=== PATIENT | male | born 1950 | race Caucasian/White ===

== ENCOUNTER 2022-06-23 13:11 | Emergency (ER) | payer MEDICARE ==
[~2022-06-23] VITALS: Ht 175.3 cm; Wt 95.2 kg
[~2022-06-23 13:11] MED LIST: ALBUTEROL S5 MG/1 ML INH; FUROSEMIDE20 MG PO; PERCOCET 5-3251 EACH PO; QVAR7.3 G1 INH
--- OUTSIDE RECORDS SUMMARY | 2022-06-23 13:18 | XMS ---
PreManage Notification: PARKER ELLIS Security Dietary Services Director Events No recent Security Events currently on file CRITERIA MET - [facility] - 2 Visits in 30 Days CARE PROVIDERS ABRAHAM MARINELLI Digital Project Manager: Foot \T\ Ankle Surgery Current PHONE: [phone] ANAHY BURGESS Internal Medicine Current PHONE: [phone] OLI CONDON Nurse Practitioner: Family Current PHONE: Unknown JODIE COURTNEY Internal Medicine Current PHONE: [phone] KARYN URBANO Nurse Practitioner: Family Current PHONE: [phone] NIVIA CHAPIN Nurse Practitioner Current CATA PHONE: [phone] ABDULAZIZ DOMINGUEZ Family Medicine Current PHONE: [phone] ISRA FREEDMAN Nurse Practitioner: Family Current PHONE: Unknown SHYAM MADRID Family Medicine Current PHONE: Unknown Lewis has no Care Guidelines for this patient. [facility]ison VISIT COUNT (12 MO.) 2 Hans Martinez [facility] 1 GENESIS Hernandez TOTAL 3 NOTE: Visits indicate total known visits. ED/UCC VISIT TRACKING (12 MO.) 06/23/2022 13:12 GENESIS Kate [place] TYPE: Emergency COMPLAINT: - CONSTIPATION [facility] DIAGNOSES: - Thrombocytopenia, unspecified - Influenza due to other identified influenza virus with other respiratory manifestations - Weakness - Alcohol abuse, uncomplicated - Chronic obstructive pulmonary disease with (acute) exacerbation - Alcoholic hepatitis without ascites - Weakness - Unspecified atrial fibrillation - Repeated falls 04/06/2022 16:56 [facility] DIAGNOSES: - Non-ST elevation (NSTEMI) myocardial infarction - Shortness of Breath - Influenza due to other identified influenza virus with other respiratory manifestations - Unspecified atrial fibrillation - Acute and chronic respiratory failure with hypoxia - Chronic obstructive pulmonary disease with (acute) exacerbation INPATIENT VISIT TRACKING (12 MO.) 06/14/2022 07[facility]03 [facility] TYPE: Medical Surgical DIAGNOSES: - Thrombocytopenia, unspecified - Alcohol abuse, uncomplicated - Repeated falls - Weakness - Alcoholic hepatitis without ascites - Chronic obstructive pulmonary disease with (acute) exacerbation - Unspecified atrial fibrillation - Chronic obstructive pulmonary disease, unspecified - Chronic respiratory failure with hypoxia - Influenza due to other identified influenza virus with other respiratory manifestations 04/06/2022 16:56 [facility] [place] ELAN TYPE: Medical Surgical DIAGNOSES: - Chronic obstructive pulmonary disease with (acute) exacerbation - Unspecified atrial fibrillation - Localized edema - Disorientation, unspecified - Influenza due to other identified influenza virus with other respiratory manifestations - Mild intermittent asthma, uncomplicated - Non-ST elevation (NSTEMI) myocardial infarction - Chronic obstructive pulmonary disease with (acute) exacerbation - Acute and chronic respiratory failure with hypoxia - Non-ST elevation (NSTEMI) myocardial infarction - Unspecified atrial fibrillation - Poisoning by benzodiazepines, accidental (unintentional), initial encounter - Pneumonia, unspecified organism [email or web address]
[2022-06-23] MEDS ORDERED: FOLIC ACID1 MG PO (13:24)
[2022-06-23] MEDS ORDERED: INCRUSE ELLI62.5 MCG IH (13:24)
[2022-06-23] MEDS ORDERED: BENZONATATE200 MG PO (13:25)
[2022-06-23] MEDS ORDERED: ATORVASTATIN CA40 MG PO (13:25)
[2022-06-23] MEDS ORDERED: CITALOPRAM HBR10 MG PO (13:25)
[2022-06-23] MEDS ORDERED: DILTIAZEM 24HR120 MG PO (13:26)
[2022-06-23] MEDS ORDERED: PREDNISONE20 MG PO (13:27)
[2022-06-23] MEDS ORDERED: PROMETHAZINE HC25 M1 PO (13:27)
[2022-06-23] MEDS ORDERED: VITAMIN B-1100 MG (13:28)
== END 2022-06-23 16:27 | disposition home or self-care (01) ==
LOC: ED 13:11
DX: K59.00 Constipation, unspecified (principal); J43.9 Emphysema, unspecified; I48.91 Unspecified atrial fibrillation; E78.5 Hyperlipidemia, unspecified; I25.2 Old myocardial infarction; Z87.891 Personal history of nicotine dependence; Z88.0 Allergy status to penicillin; Z79.899 Other long term (current) drug therapy; Z79.52 Long term (current) use of systemic steroids
CPT/HCPCS: 74176; 99284-25

== ENCOUNTER 2022-07-27 09:42 | Emergency (ER) | payer MEDICARE ==
[~2022-07-27] VITALS: Ht 175.3 cm; Wt 90.7 kg
[~2022-07-27 09:42] MED LIST changes: +ATORVASTATIN CA40 MG PO; +BENZONATATE200 MG PO; +CITALOPRAM HBR10 MG PO; +DILTIAZEM 24HR120 MG PO; +FOLIC ACID1 MG PO; +INCRUSE ELLI62.5 MCG IH; +PREDNISONE20 MG PO; +PROMETHAZINE HC25 M1 PO; +VITAMIN B-1100 MG
[2022-07-27] MEDS ORDERED: PREDNISONE20 MG PO (12:38)
== END 2022-07-27 14:11 | disposition home or self-care (01) ==
LOC: ED 09:42
DX: J44.1 Chronic obstructive pulmonary disease with (acute) exacerbation (principal); I48.91 Unspecified atrial fibrillation; E78.5 Hyperlipidemia, unspecified; I25.2 Old myocardial infarction; Z87.891 Personal history of nicotine dependence; Z88.0 Allergy status to penicillin; Z79.899 Other long term (current) drug therapy
CPT/HCPCS: 36415; 71045; 80053; 83880; 85025; 94640; 96374; 99285-25; J2930

== ENCOUNTER 2022-08-03 22:40 | Inpatient (IN) | payer MEDICARE ==
[~2022-08-03] VITALS: Ht 175.3 cm; Wt 88.1 kg
[~2022-08-03 22:40] MED LIST changes: -ALBUTEROL S5 MG/1 ML INH; +IPRAT-ALBUT 0.5-3 ML INH
--- OUTSIDE RECORDS SUMMARY | 2022-08-03 22:48 | XMS ---
PreManage Notification: APRKER ELLIS Security Clinical Information Systems Director Events No recent Security Events currently on file CRITERIA MET - [facility] - 2 Visits in 30 Days CARE PROVIDERS ABRAHAM MARINELLI Jacquard Plate Maker: Foot \T\ Ankle Surgery Current PHONE: [phone] ANAHY BURGESS Internal Medicine Current PHONE: [phone] OLI CONDON Nurse Practitioner: Family Current PHONE: Unknown JODIE COURTNEY Internal Medicine Current PHONE: [phone] KARYN URBANO Nurse Practitioner: Family Current PHONE: [phone] NIVIA CHAPIN Nurse Practitioner Current CATA PHONE: [phone] ABDULAZIZ DOMINGUEZ Family Medicine Current PHONE: [phone] ISRA FREEDMAN Nurse Practitioner: Family Current PHONE: Unknown SHYAM MADRID Family Medicine Current PHONE: Unknown Lewis has no Care Guidelines for this patient. Jamison VISIT COUNT (12 MO.) 2 Hans Martinez M[facility] 3 GENESIS Hernandez TOTAL 5 NOTE: Visits indicate total known visits. ED/UCC VISIT TRACKING (12 MO.) 08/03/2022 22:40 GENESIS Kate [place] TYPE: Emergency COMPLAINT: - WEAKNESS 07/27/2022 09:42 GENESIS Kate [place] TYPE: Emergency COMPLAINT: - SHORTNESS OF BREATH DIAGNOSES: - Allergy status to penicillin - Hyperlipidemia, unspecified - Unspecified atrial fibrillation - Other chcf (current) drug therapy - Chronic obstructive pulmonary disease with (acute) exacerbation - Old myocardial infarction - Shortness of breath - Personal history of nicotine dependence 06/23/2022 13:12 GENESIS Hewitt TYPE: Emergency COMPLAINT: - CONSTIPATION DIAGNOSES: - Old myocardial infarction - Other terminal gauger (current) drug therapy - FPC (current) use of systemic steroids - Constipation, unspecified - Unspecified atrial fibrillation - Hyperlipidemia, unspecified - Emphysema, unspecified - Allergy status to penicillin - Personal history of nicotine dependence 06/14/2022 07:03 [facility] Dorothy ANSARI TYPE: Emergency DIAGNOSES: - Alcohol abuse, uncomplicated - Chronic obstructive pulmonary disease with (acute) exacerbation - Alcoholic hepatitis without ascites - Weakness - Unspecified atrial fibrillation - Repeated falls - Thrombocytopenia, unspecified - Influenza due to other identified influenza virus with other respiratory manifestations - Weakness 04/06/2022 16:56 [facility] DIAGNOSES: - Unspecified atrial fibrillation - Acute and chronic respiratory failure with hypoxia - Chronic obstructive pulmonary disease with (acute) exacerbation - Non-ST elevation (NSTEMI) myocardial infarction - Shortness of Breath - Influenza due to other identified influenza virus with other respiratory manifestations INPATIENT VISIT TRACKING (12 MO.) 06/14/2022 07:03 [facility]: Medical Surgical DIAGNOSES: - Weakness - Alcoholic hepatitis without ascites - Chronic obstructive pulmonary disease with (acute) exacerbation - Unspecified atrial fibrillation - Chronic obstructive pulmonary disease, unspecified - Chronic respiratory failure with hypoxia - Influenza due to other identified influenza virus with other respiratory manifestations - Thrombocytopenia, unspecified - Alcohol abuse, uncomplicated - Repeated falls 04/06/2022 16:56 [facility] [place] TYPE: Medical Surgical DIAGNOSES: - Mild intermittent asthma, uncomplicated - Non-ST elevation (NSTEMI) myocardial infarction - Chronic obstructive pulmonary disease with (acute) exacerbation - Acute and chronic respiratory failure with hypoxia - Non-ST elevation (NSTEMI) myocardial infarction - Unspecified atrial fibrillation - Poisoning by benzodiazepines, accidental (unintentional), initial encounter - Pneumonia, unspecified organism - Chronic obstructive pulmonary disease with (acute) exacerbation - Unspecified atrial fibrillation - Localized edema - Disorientation, unspecified - Influenza due to other identified influenza virus with other respiratory manifestations [email or web address]
--- NOTE | 2022-08-04 05:40 | NUR ---
pt ARRIVED TO MEDSURG FLOOR FROM ED STRETCHER AT THIS TIME, ANXIOUS REGARDING HOSPITALIZATION. THERAPEUTIC COMMUNICATION PROVIDED AND pt REASSURED. TELE AND CPOX IN PLACE, pt CHRONICALLY ON 3LNC, CURRENTLY ON 4LNC D/T EXERTION R/T COMING TO MS FLOOR. FRESH WATER PROVIDED, pt EDUCATED TO TAKE SMALL SIPS, pt VERBALIZED UNDERSTANDING. AFIB PER MONITOR, HR 108. pt ORIENTED TO ROOM, CALL LIGHT IN REACH. ASSISTED WITH URINAL, VOIDED 225 MLS.
[2022-08-04 05:42] VITALS: BP 116/77
--- NOTE | 2022-08-04 07:15 | NUR ---
PT titrated from 4lnc to 3lnc, spo2 low to mid 90's. no needs or concerns verbalized, call light in reach.
--- NOTE | 2022-08-04 07:30 | EKG ---
[facility] [address] [place], [place] [address] Signed Atrial fibrillation Low voltage QRS Abnormal ECG No previous ECGs available Confirmed by DEA KENYON MD ([id number]) on 08/04/2022 7:29:44 AM Electronically Signed By: DEA KENYON MD 08/04/22 0730 PATIENT NAME: PARKER ELLIS Electrocardiogram DATE OF : 46 PHYSICIAN: DEA KENYON MD REPORT #: [id number] REPORT IS CONFIDENTIAL AND NOT TO BE RELEASED WITHOUT AUTHORIZATION
--- NOTE | 2022-08-04 08:15 | NUR ---
PT. INTAKE HISTORY COMPLETED. PT. C/O SOB AND IS TACHYPNEIC. O2 SAT. IS 94%. PT REPORTS HX OF ANXIETY AND DISCUSSED HOME MED FOR IT. RT IN THE ROOM FOR BREATHING TX. DISCUSSED SAFETY AND POC. CALL LIGHT IN REACH.
--- NOTE | 2022-08-04 09:10 | NUR ---
INTAKE ASSESSMENT COMPLETED. PT. BROUGHT WATER AND DENIES FURTHER NEEDS. CALL LIGHT IN REACH.
[2022-08-04 09:31] VITALS: BP 124/81
--- NOTE | 2022-08-04 11:31 | NUR ---
PT. REPORTS DRINKING A FIFTH OF TEQUILLA EVERY TWO DAYS. HE STATES LAST DRINK WAS LAST NIGHT. CIWA SCORE OF 14. ELIEJOVANNY ARRIVED AND AT BEDSIDE. UPDATED.
--- NOTE | 2022-08-04 11:39 | NUR ---
PTS GRANDDAUGTHER RUPERTO UPDATED ON PTS CONDITION AND STATUS. RUPERTO STATES PT "STAYS HOME AND DRINKS ALL DAY." RUPERTO VERBALIZES UNDERSTANDING AND STATES HER QUESTIONS HAVE BEEN ANSWERED. PTS PRIMARY RN UPDATED. MD AWARE OF ETOH USE.
--- NOTE | 2022-08-04 11:59 | NUR ---
PT. ASSISTED BY 2 STAFF TO BSC AND FWW. UNSTEADY AND TREMULOUS. PT. IS ANXIOUS AND HR UP TO 150. ASSISTED BACK TO BED. CUT FILER IN THE ROOM. WILL CONTINUE TO MONITOR.
[2022-08-04 13:07] VITALS: BP 125/74
--- NOTE | 2022-08-04 13:33 | NUR ---
ROUNDING ON PT. HE STATES THAT VALIUM HELPED WITH ANXIETY. DISCUSSED S/SX OF WITHDRAWAL. WILL CONTINUE TO MONITOR.
[2022-08-04] MEDS ORDERED: TAMSULOSIN HCL0.4 MG PO (13:52)
[2022-08-04] MEDS ORDERED: VENTOLIN HFA18 GM INH (13:55)
[2022-08-04] MEDS ORDERED: PROMETHAZINE HC25 M1 PO (13:55)
[2022-08-04] MEDS ORDERED: VITAMIN D325 MCG PO (15:06)
--- NOTE | 2022-08-04 15:07 | NUR ---
MED REC COMPLETE
--- NOTE | 2022-08-04 15:51 | NUR ---
ROUNDING ON PT. HE DENIES NEEDS AT THIS TIME.HR IMPROVED. PT. STATES ANXIETY IS BETTER AFTER MED. RT IN THE ROOM FOR BREATHING TX.
[2022-08-04 17:56] VITALS: BP 134/83
--- NOTE | 2022-08-04 19:10 | NUR ---
shift rpeort received from dayshift tara carpio at bedside, pt resting quietly in bed with eyes closed. rr even and unlabored, no distress noted. tele#[address], afib with hr in the 90's. spo2 low 90's, on chronically 3lnc. call light in reach.
--- NOTE | 2022-08-04 20:02 | NUR ---
PATIENT SITTING UP IN BED WATCHING TV. PATIENT REQUEST FRESH ICE WATER. NC WAS OFF TO THE SIDE OF PATIENTS FACE, FIXED BY THIS NURSE. PATIENTS ROOM CLEANED UP. VITALS DONE. PATIENT DENIES WARM BLANKET, OR ANY OTHER CARES AT THIS TIME. CALL LIGHT WITHIN REACH.
[2022-08-04 20:06] VITALS: BP 108/77
--- NOTE | 2022-08-04 20:29 | NUR ---
ASSESSMENT COMPLETE, SCHEDULED EVENING MEDS GIVEN-SEE EMAR. pt A/OX4, VSS. HEART RHYTHM IRREGULAR, RATE WNL. pt DENEIS PAIN OR NAUSEA. INCONTINENT OF SMEAR BM, RAAD CARE DONE AND NEW ATTENDS IN PLACE. SKIN VERY DRY AND FLAKEY, TRACE BLE EDEMA. IV SITE WNL, BLOOD RETURN NOTED. FLUSHES EASILY. NO ADDITIONAL NEEDS OR CONCERNS. CALL LIGHT IN REACH.
--- NOTE | 2022-08-05 00:01 | NUR ---
pt RESTING IN BED WITH EYES CLOSED, ON HIS CHRONIC 3LNC, SPO2 93%. RR EVEN AND UNLABORED, NO DISTRESS NOTED. CALL LIGHT IN REACH.
[2022-08-05 01:45] VITALS: BP 114/72
--- NOTE | 2022-08-05 01:49 | NUR ---
CALL LIGHT ANSWERED, ASSISTED pt WITH USE OF URINAL, VOIDED 225MLS. NO ACUTE CHANGES TO ASSESSMENT. pt DENEIS NAUSEA AND PAIN, NO RESP DISTRESS NOTED. VSS. CALL LIGHT IN REACH.
--- NOTE | 2022-08-05 03:26 | NUR ---
PT CALLED, REQUESTED URINAL; AFTER 3-4 MIN, PT SAID GUESS FALSE ALARM. PT ABLE TO REPOSITION UP IN BED, ONCE HOB LOWERED, ABLE TO BEND LEGS AND PUSH SELF UP TO HOB. CURRENTY SATS 93%; HR 92. CALL LIGHT WITHIN REACH. PT TO CALL IF NEED ARRISES. 3LNC CONTINUES.
[2022-08-05 04:41] VITALS: BP 123/88
--- NOTE | 2022-08-05 04:42 | NUR ---
VSS AND I&O'S COLLECTED, FRESH ICE WATER PROVIDED. pt REMAINS ON 3LNC, NO DISTRESS OR NEEDS VERBALIZED. NO S/SX OF WITHDRAWL NOTED. BED ALARM ON AND CALL LIGHT IN REACH.
--- NOTE | 2022-08-05 06:31 | NUR ---
lead reapplied to pt, no additional needs or concerns. call light in reach.
--- NOTE | 2022-08-05 09:30 | NUR ---
PATIENT AWAKE, WATCHING TELEVISION. APPEARS CALM, CIWA 1. ADMINISTERED MORNING MEDICAITONS, FULL BODY ASSESSMENT COMPLETED, NO ACUTE CHANGES. LUNG SOUNDS COURSE AND RHONCHI THROUGHOUT. PATIENT ON 3L NC 02 SAT 91%. ENCOURAGED TO GET UP TO RECLINER FOR MEALS.
[2022-08-05 09:41] VITALS: BP 111/67
--- NOTE | 2022-08-05 13:00 | NUR ---
ATTTEMPTED TO GET PATIENT UP TO RECLINER, PATIENT REFUSED. STATED " I FEEL SHORT OF BREATH" PATIENT AGREED TO TRY TO GET UP AGAIN LATER IN THE AFTERNOON. PATIENT BREATHING EVEN AND REGULAR, OXYGEN SATURATION 95% ON 3L NC. NO OTHER NEEDS AT THIS TIME. PATIENT SELF SHIFTING WEIGHT IN BED.
[2022-08-05 14:19] VITALS: BP 124/74
[2022-08-05 16:54] VITALS: BP 109/68
--- NOTE | 2022-08-05 17:00 | NUR ---
PATIENT CIWA 1, APPEARS CALM. PATIENT BREATHING EVEN AND REGULAR. PATIENT SAT AT EDGE OF BED FOR 30 MINUTES, BUT THEN WOULD NOT PROGRESS TO RECLINER AND REQUESTED TO REST BACK IN BED. LUNG SOUNDS COURSE WITH RHONCHI THROUGHOUT. VOIDING WELL, HAD 2 LARGE BMS TODAY. 2 PERSON ASSIST TO BSC.
--- NOTE | 2022-08-05 19:20 | NUR ---
REPORT RECEIVED FROM JULIUS COLIN. pt RESTING IN BED WITH EYES CLOSED. RR 16. SNORING. 3L OXYGEN BY NC IN PLACE. TOOTHPICKS DELIVERED BY DAUGHETER AND PLACED ON BEDSIDE TABLE. CALL LIGHT IN REACH.
[2022-08-05 20:56] VITALS: BP 100/85
--- NOTE | 2022-08-05 21:22 | NUR ---
pt AWAKE WATCHING TV. VSS. ASSISTED TO USE URINAL FOR VOID, CONCENTRATED. pt WITH TREMORS, CIWA SCORE 2. SCHEDULED MEDICATIONS ADMINISTERED. DISCUSSED PLAN OF CARE WITH PATIENT AND DESIRE FOR pt TO STOP DRINKING. pt STATES HE HAS TRIED IN THE PAST BUT IS NOW READY. HR IRREGULAR ON TELE 6, SPO2 WNL WITH 3L OXYGEN BY NC IN PLACE.
--- NOTE | 2022-08-05 23:17 | NUR ---
CHECKED ON pt. RESTING IN BED ON BACK, EYES CLOSED, RR 20. HR 81-84 ON TELE 6. NO DISTRESS NOTED. 3L OXYGEN BY NC IN PLACE.
--- NOTE | 2022-08-06 01:13 | NUR ---
pt AWAKE RESTING IN BED, SLOW TO RESPOND, STATES "I'M JUST WAKING UP". pt DENIES ANY NEEDS. WATCHTING TV. CALL LIGHT IN REACH.
--- NOTE | 2022-08-06 01:43 | NUR ---
CALL LIGHT ANSWERED. pt PROVIDED WITH ICE WATER. DENIES TOIELTING OR OTHER NEEDS. CALL LIGHT IN REACH.
--- NOTE | 2022-08-06 03:17 | NUR ---
pt RESTING IN BED WITH EYES CLOSED. HR 78-83 ON TELE 6, AFIB RHYTHM. SPO2 95% WITH 3L OXYGEN BY NC IN PLACE. CALL LIGHT WITHIN REACH.
[2022-08-06 04:07] VITALS: BP 104/62
--- NOTE | 2022-08-06 04:19 | NUR ---
CALL LIGHT ANSWERED. ASSISTED pt TO VOID IN URINAL. TELE BATTERY REPLACED. ASSESSMENT COMPLETE. pt REQUESTING TO REST. WATER REFRESHED WITH ICE. CALL LIGHT IN REACH.
--- NOTE | 2022-08-06 07:15 | NUR ---
REPORT FROM JULIUS MÉNDEZ.
--- NOTE | 2022-08-06 08:13 | NUR ---
MORNING ASSESSMENT IS COMPLETE. PATIENT IS RESTING IN BED, AWAITING BREAKFAST. PATIENT IS WEARING HIS CHRONIC 3L OF O2 AND 93% PATIENT DENIES PAIN OR NAUSEA. NO OTHER NEEDS NOTED AT THIS TIME.
--- NOTE | 2022-08-06 08:16 | NUR ---
records req from [facility]. fax # is [phone]
--- NOTE | 2022-08-06 09:26 | NUR ---
PATIENT RESTING IN BED, DENIES NEEDS AT THIS TIME.
[2022-08-06 09:54] VITALS: BP 106/74
--- NOTE | 2022-08-06 10:48 | NUR ---
PATIENT IS RESTING IN BED, DENIES NEEDS.
--- NOTE | 2022-08-06 11:23 | NUR ---
Certified Heart Failure Nurse Notes: Diagnosis: Acute CHF and COPD exacerbation Learning Officer:FLAVIA PCP:Dr Mchugh Date of echocardiogram - one not found on [facility] records Admit Wt.: 190 lb Admit Pro BNP: 270 Social support system: Lives with spouse. Weight monitoring: Scale present in home. Instructed how to weigh daily/ when to notify PCP Symptom management: Addressed monitoring and reporting changes in weight or symptoms. Diet: Usual meals include home cooked food. is the primary cook in the household. Medication routine: Denies missed medications or problems obtaining medications. He will accept a 7 day pill reminder box to use at home. Infrequently uses NSAIDs. Counseled on minimizing/avoiding use of NSAIDs. Mr Yañez is very concerned about the use of diuretics at home. States he can not get up and down to use bathroom. Discussed not taking within 6 hours of bedtime and possibilities of holding diuretics prior to appointments outside of his home.But ensuring that he does not skip a day altogether. Given the option to consider condom cath. Tobacco: former Advanced directive: Not discussed at this initial visit Recommendations prior to discharge: Document ambulation oxygen saturations prior to discharge Absence of orthostatic hypotension. Discharge weight less than admit weight. Discharge BNP less than admit (as per [facility] Heart Failure DC Bundle) Barriers to self-care include: Knowledge deficit of heart failure management and low sodium diet. Frequent urination with diuretic use. Per previous physician note patient has history of alcohol abuse. Follow-up plans: Will give the patient a 7 day pill associate merchandise planner box prior to his discharge.Patient agrees to receive a follow up call from this service. Patient and would be welcome for [facility] complimentary outpatient heart failure education. Teaching materials given today: [facility] Heart Failure bundle folder-[facility] My Action Plan Living Well with Heart Failure book, Daily weight and symptom monitoring log, Zones magnet, [facility] contact information.
--- NOTE | 2022-08-06 11:30 | NUR ---
INTO SEE PATIENT, PATIENT AWAKE LAYING IN BED. PATIENT STATES HE LIVE IN A ONE LEVEL HOME WITH HIS LUIS. PATIENT HAS A WALKER AT HOME. DISCUSSED THAT PATIENT HAS RECENTLY BEEN PLACED AT LOCAL [facility] FOR REHAB. PATIENT STATES THAT HE FEELS HE IS SAFE TO GO HOME WITH HIS WIFES ASSISTANCE. PATIENT STATES HE DOES DRIVE OCCASIONALLY, BUT HIS AND GRANDDAUGHTER ASSIST WITH HOUSEHOLD TASK AND SHOPPING. DISCUSSED PATIENTS ONGOING ETOH USE AND CASANDRA REFERRAL OFFERED, PATIENT DECLINED. PATIENT STATES THAT HE HAS BEEN THROUGH [facility] IN THE PAST. HE STATES "I FEEL LIKE I WANT TO DO IT ON MY OWN THIS TIME." PATIENT DENIES FINANCIAL NEEDS AT THIS TIME. NO FURTHER QUESTIONS OR CONCERN FROM THE PATIENT AT THIS TIME. WILL CONTINUE TO CHECK IN WITH PATIENT DURING HIS VISIT.
--- NOTE | 2022-08-06 12:20 | NUR ---
PATIENT GIVEN ORAL MEDS. PATIENT CONTINUES TO HAVE FINE TREMOR, NO AGITATION. DR. EWING IN TO SEE PATIENT.
[2022-08-06 13:53] VITALS: BP 102/70
--- NOTE | 2022-08-06 13:57 | NUR ---
PATIENT HAD A GOOD APPETITE FOR LUNCH, MOVED SELF UP IN BED WITH MINIMAL ASSISTANCE. NO OTHER NEEDS NOTED AT THIS TIME.
--- NOTE | 2022-08-06 15:09 | NUR ---
PATIENT GIVEN 5MG OF SCHEDULED VALIUM, DENIES OTHER NEEDS. PATIENT ENCOURAGED, SEVERAL TIMES, TO GET UP TO THE CHAIR BUT HAS REFUSED SO FAR.
--- NOTE | 2022-08-06 16:47 | NUR ---
PATIENT GIVEN PO NYSTATIN, IS RESTING IN BED. PATIENT IS CONCERNED ABOUT HAVING ENOUGH HELP WHEN HE GOES HOME.
[2022-08-06 18:24] VITALS: BP 101/64
--- NOTE | 2022-08-06 18:57 | NUR ---
PATIENT IS RESTING IN BED, NO NEEDS NOTED AT THIS TIME.
--- NOTE | 2022-08-06 19:42 | NUR ---
REPORT RECEIVED FROM JULIUS FLOR. pt RESTING IN BED AWAKE. DENIES ANY NEEDS. 3L OXYGEN BY NC IN PLACE. CALL LIGHT AND PERSONAL SUPPLIES IN REACH. pt ON TELE 6, SPO2 92%.
[2022-08-06 21:35] VITALS: BP 108/64
--- NOTE | 2022-08-06 21:50 | NUR ---
pt SLEEPING, AWAKENS TO VOICE. CIWA SCORE 2, TREMORS NOTED. ASSESSMENT COMPLETE. IV FLUSHED WNL, SL. VSS. pt ASSISTED TO VOID IN URINAL. WATER REFRESHED WITH ICE. LIGHTS OFF IN ROOM. NO ADDITIONAL REQUESTS.
--- NOTE | 2022-08-06 22:49 | NUR ---
NOTIFIED BY CCU pt'S SPO2 DROPS TO LOW 80S CONSISTENTLY. SPO2 80% WHEN RN ENTERS ROOM. NC IN PLACE, pt LYING ON BACK, HOB ELEVATED, BREATHING WITH MOUTH OPEN. TITRATED TO 4L OXYGEN BY NC, SPO2 87-88%. pt AWAKENS TO VOICE, SWITCHED TO OXYMASK, 4L OXYGEN, SPO2 INCREASES TO 92-94% ON TELE CPOX. pt CLOSING EYES RN EXITS ROOM.
--- NOTE | 2022-08-06 23:00 | NUR ---
TITRATED TO 3L OXYGEN BY OXYMASK, SPO2 97-98% AT THIS TIME. pt SNORING, EYES CLOSED. NO DISTRESS NOTED.
--- NOTE | 2022-08-07 01:15 | NUR ---
SPO2 DROPS TO 84% ON TELE 6, OXYMASK OFF pt'S FACE PARTIALLY. OXYMASK WITH 3L OXYGEN REPOSITIONED, SPO2 INCREASES TO >92%.
--- NOTE | 2022-08-07 01:49 | NUR ---
PATIENT ASSISTED IN USING THE URINAL. PATIENT URINATED 125ML DARK URINE. NO OTHER NEEDS AT THIS TIME.
--- NOTE | 2022-08-07 01:50 | NUR ---
CALL LIGHT ANSWERED. pt ASSISTED TO BSC FOR LARGE FORMED BOWEL MOVEMENT. pt ABLE TO TRANSFER SELF INDEPENDENTLY IN AND OUT OF BED. SBA FOR SUPPORT AND TO PROVIDE WALKER. pt ABLE TO PULL DOWN ATTENDS. RN ASSISTS WITH WIPING DUE TO CPOX SENSOR ON HAND. pt REQUIRES PROMPTING WITH CARES. REPOSITIONS SELF IN BED. ASSESSMENT COMPLETE. LUNG SOUNDS WITH WHEEZES THROUGHOUT ALL LOBES, SPO2 WNL WITH 3L OXYGEN BY NC IN PLACE. CALL LIGHT AND PERSONAL SUPPLIES WITHIN REACH.
--- NOTE | 2022-08-07 04:00 | NUR ---
pt RESTING IN BED WITH EYES CLOSED, TURNED ONTO LEFT SIDE. BREATHING UNLABORED, RR 18. 3L OXYGEN BY NC IN PLACE, SPO2 97% ON TELE CPOX.
[2022-08-07 05:09] VITALS: BP 122/90
--- NOTE | 2022-08-07 05:10 | NUR ---
CALL LIGHT ANSWERED. pt ASSISTED TO USE URINAL. STANDING WEIGHT. 1PA TO STAND. pt SOB WITH EXERTION. BACK IN BED, 3L OXYGEN BY NC IN PLACE. ICE WATER PROVIDED. CALL LIGHT IN REACH.
--- NOTE | 2022-08-07 07:33 | NUR ---
REPORT RECEIVED FROM JULIUS MÉNDEZ. PT IN BED AND APPEARS TO BE SLEEPING.
--- NOTE | 2022-08-07 09:07 | NUR ---
PT SITTING UP IN BED. REPORTS NAUSEA. CALLED AND ADMINISTERED ZOFRAN. ORDERED MEDS GIVEN. PT DENIES CONCERNS OTHER THAN HE WANTS MIKE. VS STABLE. IV FLUSHED WELL.
[2022-08-07 10:01] VITALS: BP 103/69
--- NOTE | 2022-08-07 11:00 | NUR ---
NURSE HELPED ME PUT PATIENT IN THE SHOWER. PUT HIM ON A SHOWER CHAIR. WASHED HIS HAIR AND HIS BODY. CLEAN GOWN AND SOCKS. PATIENT IS BACK IN BED.
--- NOTE | 2022-08-07 11:21 | NUR ---
ASSISTED PATIENT WITH ERYN SHERWOOD TO SHOWER. CHANGED BEDDING.
[2022-08-07 13:33] VITALS: BP 98/64
--- NOTE | 2022-08-07 14:28 | NUR ---
PT WAS NAPPING AGAIN, WOKE FOR MEDS. PT DENIES NEEDS OR CONCERNS ATT.
--- NOTE | 2022-08-07 14:39 | NUR ---
SPOKE TO PATIENT ABOUT THE DISCHARGE PLAN. PATIENT PLANS TO GO HOME TO HIS OWN HOME THAT HE SHARES WITH HIS . DENIES CASE MANAGEMENT NEEDS. ENCOURAGED PATIENT TO NOTIFY CM IF THE PLAN CHANGES.
--- NOTE | 2022-08-07 16:02 | NUR ---
PT GIVEN ICE WATER. CALL LIGHT IN PLACE. PT DENIES NEEDS ATT.
--- NOTE | 2022-08-07 17:34 | NUR ---
WOKE FOR DINNER AND SCHEDULED MED. PT DENIES NEEDS ATT.
[2022-08-07 18:13] VITALS: BP 99/60
--- NOTE | 2022-08-07 19:20 | NUR ---
REPORT RECEIVED FROM JULIUS HOPE. pt RESTING IN BED. 3L OXYGEN BY NC IN PLACE, SPO2 91% ON TELE 6 CPOX, HR 76-83 AFIB RHYTHM. CALL LIGHT IN REACH. pt DENIES NEEDS.
[2022-08-07 20:58] VITALS: BP 101/72
--- NOTE | 2022-08-07 21:09 | NUR ---
pt RESTING IN BED ASLEEP, SNORING. AWAKENS TO VOICE. VSS, 3L OXYGEN BY NC IN PLACE. ASSESSMENT COMPLETE. pt DENIES TOILETING OR ADDITIONAL NEEDS. IV SITE FLUSHED WNL, SL. CALL LIGHT IN REACH.
--- NOTE | 2022-08-07 22:41 | NUR ---
PT O2 SATS INTO THE 70'S. INTO ROOM, CANULA OUT OF NOSTRILS, PT WITH EYES CLOSED, SNORING, MOUTH WIDE OPEN. INCREASED O2 TO 4, SATS DID NOT IMPROVE HIGHER THAN THE LOW 80'S. PLACED ON OXIMASK 3 LITERS WITH THE NC, UP TO THE 90'S, DECREASED O2 TO A TOTAL OF 3 L BOTH NC, AND OXIMASK. SATS IN THE LOW 90'S VIA MONITOR. PT STIRRED, TOOK SOME DEEP BREATHS, THEN TO SNORING WHILE STAFF IN THE ROOM.
--- NOTE | 2022-08-07 23:09 | NUR ---
pt RESTING IN BED ON BACK, HOB ELEVATED. NC WITH 2L OXYGEN AND OXYMASK WITH 1L OXYGEN IN PLACE. SPO2 94% ON TELE CPOX. HR 85-87, AFIB.
--- NOTE | 2022-08-08 01:30 | NUR ---
CHECKED ON pt. RESTING IN BED ON LEFT SIDE. NO DISTRESS NOTED. SPO2 91%.
--- NOTE | 2022-08-08 02:17 | NUR ---
PATIENT CALLED TO USE THE URINAL AND ASKED FOR ASSISTANCE. PATIENT VOIDED 125 DARK URINE. DENIES OTHER NEEDS AT THIS TIME.
[2022-08-08 04:03] VITALS: BP 101/79
--- NOTE | 2022-08-08 04:11 | NUR ---
CALL LIGHT ANSWERED. pt ASSISTED TO VOID IN URINAL, CONCENTRATED 100 ML VOID. ASSESSMENT COMPLETE. VSS. pt REQUESTING TO STAND FOR DAILY WEIGHT LATER ON IN MORNING. LIGHTS OFF IN ROOM, CALL LIGHT IN REACH.
--- NOTE | 2022-08-08 07:38 | NUR ---
PT ASSESSMENT AND MEDICATION ADMINISTRATION COMPLETED.
[2022-08-08 09:59] VITALS: BP 99/67
[2022-08-08] MEDS ORDERED: DIAZEPAM2 MG PO (11:41)
[2022-08-08] MEDS ORDERED: VITAMIN B-1100 MG PO (11:42)
[2022-08-08] MEDS ORDERED: NYSTATIN100000 UN1 PO (11:43)
[2022-08-08] MEDS ORDERED: DIAZEPAM5 MG PO (12:02)
[2022-08-08 13:29] VITALS: BP 115/72
--- NOTE | 2022-08-08 13:54 | NUR ---
SPOKE TO PATIENT ABOUT HIS DISCHARGE PLAN. PATIENT WILL BE GOING HOME TODAY. PATIENT IS WAITING FOR TO PICK HIM UP. PATIENT IS ON CHRONIC 02 AND HAS OXYGEN AT HOME ALREADY.
--- NOTE | 2022-08-08 14:20 | NUR ---
PT READY FOR DISCHARGE. EDUCATION PACKET DISCUSSED AND GIVEN TO PT. IV REMOVED, VS COMPLETED. PT IS A/O, RESPIRATIONS EVEN AND REGULAR. PT INSTRUCTED TO CALL WHEN FAMILY ARRIVES TO ADMINISTRATIVE ASSOCIATE.
--- NOTE | 2022-08-08 15:00 | NUR ---
CALLED TO PATIENT'S ROOM TO TALK ABOUT THE PATIENT'S DISCHARGE PLAN. PATIENT SAYS HE NEEDS TO STAY BECAUSE HE CANNOT GO HOME BECAUSE HE WILL HAVE TO TAKE CARE OF HIS . PATIENT WAS TOLD THAT WATCHING HIS IS NOT A MEDICAL REASON FOR THE PATIENT TO STAY IN THE HOSPITAL. PATIENT UNDERSTANDS BUT, DOES NOT KNOW WHAT TO DO ABOUT HIS BECAUSE SHE CAN NOT TAKE CARE OF HERSELF. HELPING HANDS AND DHS CARD GIVEN TO PATIENT. PATIENT ENCOURAGED TO TALK TO HIS FAMILY AND TELL THEM THAT THE PATIENT NEEDS HELP WITH HIS WIFES CARE. DONNY SHOWED UP TO GET PATIENT AND TAKE THE PATIENT HOME. SPOKE TO DONNY ABOUT SOMEONE IN THE FAMILY WILL NEED TO STAY WITH GRANDPARENTS. DAUGHTER CALLED AND UPDATED ON ISSUES AND WILL STAY WITH FATHER UNTIL OTHER ARRANGMENTS CAN BE MADE.
--- NOTE | 2022-08-08 15:28 | NUR ---
PT DISCHARGED WITH FAMILY. PT IS A/O, RESPIRATIONS EVEN AND REGULAR. SENT HOME WITH [facility] OXYGEN TANK. REMAINS ON 3L NC.
[2022-08-08] MEDS ORDERED: LASIX40 MG PO (16:36)
--- NOTE | 2022-08-09 08:05 | NUR ---
Spoke with LARRY, he is asking for CIWA assessments. Last three printed and faxed. They are assessing this pt for placement as he states he cannot remain at home.
== END 2022-08-08 15:25 | disposition home or self-care (01) | DRG 190 ==
LOC: ED 22:40 → MS 22:41
PROVIDERS: ADMIT Internal Medicine; ATTEND Family Medicine
PROC: HZ2ZZZZ Detoxification Services for Substance Abuse Treatment (ICD-10-PCS; principal; 2022-08-04)
DX: J43.9 Emphysema, unspecified (principal); I50.23 Acute on chronic systolic (congestive) heart failure; B37.0 Candidal stomatitis; E78.5 Hyperlipidemia, unspecified; Z20.822 Contact with and (suspected) exposure to COVID-19; Z91.148 Patient's other noncompliance with medication regimen for other reason; F10.20 Alcohol dependence, uncomplicated; I48.91 Unspecified atrial fibrillation; R09.02 Hypoxemia; Z99.81 Dependence on supplemental oxygen; Z86.59 Personal history of other mental and behavioral disorders; I25.2 Old myocardial infarction; Z87.891 Personal history of nicotine dependence; Z88.0 Allergy status to penicillin; Z79.51 Long term (current) use of inhaled steroids; Z79.52 Long term (current) use of systemic steroids; Z79.899 Other long term (current) drug therapy
CPT/HCPCS: 36415; 71045; 80048; 80053; 80076; 81001; 83605; 83735; 83880; 84484; 85025; 87502; 93005; 93010; 93306; 94640; 94760; 94762; A9270; C9803; J1940; J2405; J2930; J3475; U0003

== ENCOUNTER → 2022-08-17 | Emergency (ER) | payer MEDICARE ==
[~2022-08-17] VITALS: Ht 175.3 cm; Wt 88.0 kg
[~2022-08-17] MED LIST changes: +CONSTULOSE10 GM/15 M PO; +DIAZEPAM2 MG PO; +DIAZEPAM5 MG PO; +K-TAB ER20 MEQ PO; +LASIX40 MG PO; +NYSTATIN100000 UN1 PO; +TAMSULOSIN HCL0.4 MG PO; +VENTOLIN HFA18 GM INH; +VITAMIN B-1100 MG PO; +VITAMIN D325 MCG PO
--- OUTSIDE RECORDS SUMMARY | 2022-08-17 17:02 | XMS ---
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 No recent Security Events currently on file CRITERIA MET - 6 ED Visits in 6 Months - [facility] - [facility] - 2 Visits in 30 Days CARE PROVIDERS ABRAHAM MARINELLI Tester Regulator: Foot \T\ Ankle Surgery Current PHONE: [phone] ANAHY BURGESS Internal Medicine Current PHONE: [phone] OLI CONDON Nurse Practitioner: Family Current PHONE: Unknown JODIE COURTNEY Internal Medicine Current PHONE: [phone] KARYN URBANO Nurse Practitioner: Family Current PHONE: [phone] NIVIA CHAPIN Nurse Practitioner Current CATA PHONE: [phone] ABDULAZIZ DOMINGUEZ Family Medicine Current PHONE: [phone] ISRA FREEDMAN Nurse Practitioner: Family Current PHONE: Unknown SHYAM MADRID Family Medicine Current PHONE: Unknown Lewis has no Care Guidelines for this patient. [facility] VISIT COUNT (12 MO.) 2 [facility] 4 GENESIS Hernandez TOTAL 6 NOTE: Visits indicate total known visits. ED/UCC VISIT TRACKING (12 MO.) 08/17/2022 17:00 [facility] [place] TYPE: Emergency COMPLAINT: - LT SIDED PAIN 08/03/2022 22:40 [facility] [place] TYPE: Emergency COMPLAINT: - WEAKNESS 07/27/2022 09:42 [facility] [place] TYPE: Emergency COMPLAINT: - SHORTNESS OF BREATH DIAGNOSES: - Allergy status to penicillin - Chronic obstructive pulmonary disease with (acute) exacerbation - Hyperlipidemia, unspecified - Old myocardial infarction - Other remote computer terminal operator (current) drug therapy - Personal history of nicotine dependence - Shortness of breath - Unspecified atrial fibrillation 06/23/2022 13:12 [facility] [place] TYPE: Emergency COMPLAINT: - CONSTIPATION DIAGNOSES: - Allergy status to penicillin - Constipation, unspecified - Emphysema, unspecified - Hyperlipidemia, unspecified - predatory animal exterminator (current) use of systemic steroids - Old myocardial infarction - Other remote computer terminal operator (current) drug therapy - Personal history of nicotine dependence - Unspecified atrial fibrillation [facility] [place] [facility] DIAGNOSES: - Alcohol abuse, uncomplicated - Alcoholic hepatitis without ascites - Chronic obstructive pulmonary disease with (acute) exacerbation - Influenza due to other identified influenza virus with other respiratory manifestations - Repeated falls - Thrombocytopenia, unspecified - Unspecified atrial fibrillation - Weakness - Weakness 04/06/2022 16:56 [facility] TYPE: Emergency DIAGNOSES: - Acute and chronic respiratory failure with hypoxia - Chronic obstructive pulmonary disease with (acute) exacerbation - Influenza due to other identified influenza virus with other respiratory manifestations - Non-ST elevation (NSTEMI) myocardial infarction - Unspecified atrial fibrillation - Shortness of Breath INPATIENT VISIT TRACKING (12 MO.) 08/04/2022 13:50 [facility] [place] TYPE: Medical Surgical COMPLAINT: - CHF,COPD EXACERBATION DIAGNOSES: - Acute on chronic systolic (congestive) heart failure - Acute on chronic systolic (congestive) heart failure - Alcohol dependence, uncomplicated - Alcohol dependence, uncomplicated - Allergy status to penicillin - Allergy status to penicillin - Candidal stomatitis - Candidal stomatitis - Chronic obstructive pulmonary disease with (acute) exacerbation - Chronic systolic (congestive) heart failure - Contact with and (suspected) exposure to COVID-19 - Contact with and (suspected) exposure to COVID-19 - Dependence on supplemental oxygen - Dependence on supplemental oxygen - Emphysema, unspecified - Emphysema, unspecified - Hyperlipidemia, unspecified - Hyperlipidemia, unspecified - Hypoxemia - Hypoxemia - predatory animal exterminator (current) use of inhaled steroids - predatory animal exterminator (current) use of inhaled steroids - senior living (current) use of systemic steroids - senior living (current) use of systemic steroids - Old myocardial infarction - Old myocardial infarction - Other remote computer terminal operator (current) drug therapy - Other fci (current) drug therapy - Personal history of nicotine dependence - Personal history of nicotine dependence - Personal history of other mental and behavioral disorders - Personal history of other mental and behavioral disorders - Shortness of breath - Unspecified atrial fibrillation - Unspecified atrial fibrillation - PATIENT'S OTHER NONCOMPL WITH MEDS REGIMEN FOR OTH - PATIENT'S OTHER NONCOMPL WITH MEDS REGIMEN FOR OTH 06/14/2022 07:03 [facility] Saeid [facility] TYPE: Medical Surgical DIAGNOSES: - Alcohol abuse, uncomplicated - Alcoholic hepatitis without ascites - Chronic obstructive pulmonary disease with (acute) exacerbation - Chronic obstructive pulmonary disease, unspecified - Chronic respiratory failure with hypoxia - Influenza due to other identified influenza virus with other respiratory manifestations - Repeated falls - Thrombocytopenia, unspecified - Unspecified atrial fibrillation - Weakness 04/06/2022 16:56 [facility]: Medical Surgical DIAGNOSES: - Acute and chronic respiratory failure with hypoxia - Chronic obstructive pulmonary disease with (acute) exacerbation - Chronic obstructive pulmonary disease with (acute) exacerbation - Disorientation, unspecified - Influenza due to other identified influenza virus with other respiratory manifestations - Localized edema - Mild intermittent asthma, uncomplicated - Non-ST elevation (NSTEMI) myocardial infarction - Non-ST elevation (NSTEMI) myocardial infarction - Pneumonia, unspecified organism - Poisoning by benzodiazepines, accidental (unintentional), initial encounter - Unspecified atrial fibrillation - Unspecified atrial fibrillation [email or web address]
[2022-08-17 21:23] VITALS: BP 111/79
== END ==
LOC: ED 16:59
DX: K59.00 Constipation, unspecified (principal); E87.6 Hypokalemia; Z87.891 Personal history of nicotine dependence; Z88.0 Allergy status to penicillin; Z79.899 Other long term (current) drug therapy
CPT/HCPCS: 36415; 51701; 74177; 80053; 81003; 83690; 85025; 99284-25; A9270; J1170; J2405; J3480; J7040

== ENCOUNTER 2022-08-23 16:58 | Inpatient (IN) | payer MEDICARE ==
[~2022-08-23] VITALS: Ht 175.3 cm; Wt 78.5 kg
--- OUTSIDE RECORDS SUMMARY | 2022-08-23 17:00 | XMS ---
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 - 2 Visits in 30 Days CARE PROVIDERS ABRAHAM MARINELLI Ground Layer: Foot \T\ Ankle Surgery Current PHONE: [phone] ANAHY BURGESS Internal Medicine Current PHONE: [phone] OLI CONDON Nurse Practitioner: Family Current PHONE: Unknown JODIE COURTNEY Internal Medicine Current PHONE: [phone] KARYN URBANO Nurse Practitioner: Family Current PHONE: [phone] NIVIA CHAPIN Nurse Practitioner Current CATA PHONE: [phone] ABDULAZIZ DOMINGUEZ Family Medicine Current PHONE: [phone] ISRA FREEDMAN Nurse Practitioner: Family Current PHONE: Unknown SHYAM MADRID Family Medicine Current PHONE: Unknown Lewis has no Care Guidelines for this patient. [facility] VISIT COUNT (12 MO.) 2 [facility] 5 GENESIS Hernandez TOTAL 7 NOTE: Visits indicate total known visits. ED/UCC VISIT TRACKING (12 MO.) 08/23/2022 16:58 [facility] [place] TYPE: Emergency COMPLAINT: - LT SIDED PAIN 08/17/2022 17:00 [facility] [place] TYPE: Emergency COMPLAINT: - LT SIDED PAIN DIAGNOSES: - Allergy status to penicillin - Constipation, unspecified - Hypokalemia - Other skilled nursing (current) drug therapy - Personal history of nicotine dependence 08/03/2022 22:40 [facility] [place] TYPE: Emergency COMPLAINT: - WEAKNESS 07/27/2022 09:42 [facility] [place] TYPE: Emergency COMPLAINT: - SHORTNESS OF BREATH DIAGNOSES: - Allergy status to penicillin - Chronic obstructive pulmonary disease with (acute) exacerbation - Hyperlipidemia, unspecified - Old myocardial infarction - Other skilled nursing (current) drug therapy - Personal history of nicotine dependence - Shortness of breath - Unspecified atrial fibrillation 06/23/2022 13:12 [facility] TYPE: Emergency COMPLAINT: - CONSTIPATION DIAGNOSES: - Allergy status to penicillin - Constipation, unspecified - Emphysema, unspecified - Hyperlipidemia, unspecified - terminal makeup operator (current) use of systemic steroids - Old myocardial infarction - Other skilled nursing (current) drug therapy - Personal history of nicotine dependence - Unspecified atrial fibrillation [facility] DIAGNOSES: - Alcohol abuse, uncomplicated - Alcoholic hepatitis without ascites - Chronic obstructive pulmonary disease with (acute) exacerbation - Influenza due to other identified influenza virus with other respiratory manifestations - Repeated falls - Thrombocytopenia, unspecified - Unspecified atrial fibrillation - Weakness - Weakness 04/06/2022 16:56 [facility] DIAGNOSES: - Acute and [...] Hyperlipidemia, unspecified - Hypoxemia - Hypoxemia - terminal makeup operator (current) use of inhaled steroids - terminal makeup operator (current) use of inhaled steroids - [facility] (current) use of systemic steroids - terminal makeup operator (current) use of systemic steroids - Old myocardial infarction - Old myocardial infarction - Other skilled nursing (current) drug therapy - Other skilled nursing (current) drug therapy - Personal history of [...] WITH MEDS REGIMEN FOR OTH 06/14/2022 07:03 [facility] Dorothy ANSARI TYPE: Medical Surgical DIAGNOSES: - Alcohol abuse, uncomplicated - Alcoholic hepatitis without ascites - Chronic obstructive pulmonary disease with (acute) exacerbation - Chronic obstructive pulmonary disease, unspecified - Chronic respiratory failure with hypoxia - Influenza due to other identified influenza virus with other respiratory manifestations - Repeated falls - Thrombocytopenia, unspecified - Unspecified atrial fibrillation - Weakness 04/06/2022 16:56 [facility] DIAGNOSES: - Acute [...] Unspecified atrial fibrillation - Unspecified atrial fibrillation [email or web address]
[2022-08-23] MEDS ORDERED: POTASSIUM20 MEQ/15 PO (22:09)
[2022-08-23] MEDS ORDERED: MAGNESIUM OXID250 MG PO (22:09)
[2022-08-23] MEDS ORDERED: CEFDINIR300 MG PO (22:09)
[2022-08-23] MEDS ORDERED: FLOMAX0.4 MG PO (22:11)
[2022-08-24] VITALS (15 sets, daily range): BP systolic 91–116; BP diastolic 57–82
--- NOTE | 2022-08-24 01:00 | NUR ---
PATIENT ARRIVED VIA STRETCHER. HE OPENS HIS EYES TO VOICE BUT DOESN'T ANSWER ORIENTATION QUESTIONS. PATIENT VS STABLE. TOLERATING 4L NC. DROWSY AND ATTEMPTING TO REST; WHICH THIS RN ALLOWED. IV SITE WNL, MEDS STARTED PER ORDER. OSMAN IN PLACE. LUNG SOUNDS ARE COARSE, DIMINSIHED ON THE LEFT. SCAB NOTED ON RIGHT KNEE. PATIENT TURNED TO REMOVE EXCESS BEDDING AND BACK SIDE WAS WNL. PATIENT PROVIDED WARM BLANKETS AND LIGHTS DIMMED.
--- NOTE | 2022-08-24 04:00 | NUR ---
IV FLUIDS FINISHED. PATIENT SL. PATIENT CONTINUES TO REST WITH EYES CLOSED AND DOESN'T RESPOND TO VERBAL STIMULI. ALLOWED PATIENT TO REST. VS STABLE. 4L NC PER HOME O2.
--- NOTE | 2022-08-24 06:15 | NUR ---
PATIENT REPOSITIONED IN BED. OPENS HIS EYES AND SHAKES HIS HEAD WHEN ASKED QUESTIONS. TITRATED TO 2L NC DUE TO Sp02 BEING >98% ON 4L NC. LUNG SOUNDS ARE COARSE. OSMAN EMPTIED. URINE OUTPUT QS. BED ALARM ON.
--- NOTE | 2022-08-24 07:30 | NUR ---
REPORT RECEIVED FROM NIGHT RN - PT RESTING IN BED WITH EYES CLOSED. VS STABLE ON MONITOR AT STATION.
--- NOTE | 2022-08-24 09:00 | NUR ---
ASSESSEMENT COMPLETE. PT ALERT BUT ONLY ORIENTED TO SELF, SLOW TO RESPOND. ORAL INTAKE IMPROVED THIS AM, NO DIFFICULTY SWALLOWING NOTED. ABLE TO TAKE ORAL MEDS WITHOUT DIFFICULTY.
--- NOTE | 2022-08-24 09:14 | NUR ---
CIWA SCORE 15 - 1MG PO ATIVAN ADMINISTERED WITH SCHEDULED MEDICATIONS TAPER, WILL CONTINUE TO REASSESS CLOSELY FOR NEED FOR ADDITIONAL PRN. BED ALARM ON, DOOR OPEN.
--- NOTE | 2022-08-24 09:40 | NUR ---
MED REC COMPLETE
--- NOTE | 2022-08-24 09:46 | NUR ---
PT HOLLERING OUT IN PAIN STATING "MAKE IT STOP", UNABLE TO VERBALIZE LOCATION OF PAIN BUT MAGAN WHEN ABD IS PALPATED, GENERALIZED REACTION TO ALL QUADRANTS. OSMAN CATH DRAINING. PRN MORPHINE ADMINISTERED, WILL REASSESS.
--- NOTE | 2022-08-24 10:30 | NUR ---
FAMILY UPDATED ON PT STATUS VIA PHONE CALL
--- NOTE | 2022-08-24 10:37 | EKG ---
[facility] [address] [facility] [place] [address] Signed Atrial fibrillation with rapid ventricular response Prolonged QT Abnormal ECG When compared with ECG of 03-AUG-2022 22:48, QT has lengthened Confirmed by Kayli Ewing MD () on 08/24/2022 10:37:13 AM Electronically Signed By: KAYLI EWING MD 08/24/22 1037 PATIENT NAME: PARKER ELLIS Electrocardiogram DATE OF : 46 PHYSICIAN: KAYLI EWING MD REPORT #: [id number] REPORT IS CONFIDENTIAL AND NOT TO BE RELEASED WITHOUT AUTHORIZATION
--- NOTE | 2022-08-24 11:15 | NUR ---
RN IN ROOM TO ADMINSTER SCHEDULED MEDICATIONS - PT REMAINS DISOREIENTED TO SITUATION AND TIME, DENIES HEADACHE AND EYE SENSITIVITY. WET COUGH WITH LIGHT GREEN SPUTUM PRODUCED. BED ALARM ON WITH DOOR OPEN.
--- NOTE | 2022-08-24 12:17 | NUR ---
PATIENT RECENTLY DISCHARGED ON 08/08/21 FOR INPATIENT CARE. CASE MANAGEMENT CONTACTED SHORTLY AFTER PATIENT DISCHARGE STATING THAT THE PATIENT COULD NOT CARE FOR HIMSELF AND WAS SEEKING PLACEMENT AT [facility]. PER LARRY AT [facility] PATIENT COULD NOT BE ACCEPTED UNTIL 08/14/22 AND HE AND HIS FAMILY WERE GIVEN SPECIFIC INSTRUCTION TO ABSTAIN FROM ALCOHOL UNTIL HIS ADMISSION. STATES THAT ON 08/14/22 WHEN THE PATIENT TO WAS TO ADMIT IT WAS NOTED HE DID NOT ABSTAIN FROM ETOH AND WAS DECLINED FOR ADMISSION. SPOKE WITH LARRY AT [facility]. IF THE PATIENT WAS TO DISCHARGE FROM INPATIENT CARE TO [facility] AFTER WITHDRAWL SYMPTOMS HAD TERMINATED THEY WOULD CONSIDER ACCEPTING THE PATIENT. CHART NOT FAXED TO FOR UPDATE AND DISCUSSED WITH DR. EWING.
--- NOTE | 2022-08-24 12:20 | NUR ---
CALLED PATIENT HOME, SPOKE WITH HIS LUIS AND DAUGHTER WHO WAS CURRENTLY AT THE HOME. I ADVISED THAT I WAS AWARE OF PRIOR PLAN FOR THE PATIENT TO MOVE INTO [facility], BUT HE WAS UNABLE DUE TO HIS ONGOING ALCOHOL CONSUMPTIONS. ADVISED THAT I HAVE SPOKE WITH LARRY AT [facility], THEY ARE WILLING TO REVIEW THE PATIENT CHART AND LIKELY ADMIT THE PATIENT NEXT WEEK AFTER A PERIOD OF DETOX. LUIS ADVISED THAT THEY WERE HOPING THAT THIS WOULD BE AN OPTION AND AGREE TO THE DISCHARGE PLAN. LUIS AND PATIENT DAUGHTER STATES THEY HAVE BOTH SPOKEN WITH PARKER ABOUT THIS PRIOR TO HIS ARRIVAL TO THE HOSPITAL AND HE ALSO AGREED TO DISCHARGE TO [facility]. WILL CONTINUE TO MONITOR PATIENT AND UPDATE [facility] TO PREPARE FOR DISCHARGE. DR. EWING AND CCU STAFF UPDATED.
--- NOTE | 2022-08-24 13:10 | NUR ---
ot in room assisting pt with lunch self feeding.
--- NOTE | 2022-08-24 14:46 | NUR ---
RN IN ROOM TO ADMINISTER SCHEDULED ATIVAN. PT REMIANS ONLY ORIENTED TO SELF, NO OTHER SIGNS OF WITHDRAWL AT THIS TIME. BED ALARM ON, DOOR OPEN.
--- NOTE | 2022-08-24 16:50 | NUR ---
RN IN ROOM TO REPOSISTION PT - SKIN ASSESSMENT COMPLETE, REDNESS NOTED IN UPPER GLUTEAL FOLD, NON TENDER, NO BREAKDOWN. BED ALARM ON, DOOR OPEN.
--- NOTE | 2022-08-24 17:38 | NUR ---
RN IN ROOM TO ASSIST PT WITH FEEDING DINNER. PT ALERT AND ORIENTED TO SELF ONLY. CONTINUES TO HAVE CONGESTED COUGH WITH SOME PRODUCTION PT IS ABLE TO CLEAR WITH STRONG COUGH. O2 DEMANDS REMAIN THE SAME AT 3L NC. AFEBRILE.
--- NOTE | 2022-08-24 20:35 | NUR ---
RECEIVED REPORT ON PT, ALL QUESTIONS AND CONCERNS WERE ADDRESSED AT THIS TIME. PT IS CURRENTLY RESTING, EASY TO AROUSE, ORIENTED TO SELF ONLY, ABLE TO FOLLOW COMMANDS BUT NOT ANSWER QUESTIONS APPROPRIATELY, WILL PROMOTE REST OVER DECK BUILDER, AND NOTIFY PROVIDER WITH ANY CHANGES IN PT STATUS.
[2022-08-25] VITALS (10 sets, daily range): BP systolic 90–103; BP diastolic 58–83
--- NOTE | 2022-08-25 | NUR ---
PT HAS BEEN SLEEPING WELL, TITRATED O2 UP TO 4L D/T DE-SATING WHILE ASLEEP, PT IS CHRONICALLY ON 4L @ HOME, WILL CONTINUE TO MONITOR.
--- NOTE | 2022-08-25 04:00 | NUR ---
PT RESTED WELL, AWAKE AND TALKING BUT STILL CONFUSED, VSS, ADEQUATE URINARY OUTPUT, NO SIGNIFICANT CHANGES. WILL CONTINUE TO MONITOR.
--- NOTE | 2022-08-25 07:24 | NUR ---
Report recieved from night RN - pt resting in bed awake, hollering out for "help" but does not communicate need once staff in room. Bed alarm on, door open.
--- NOTE | 2022-08-25 09:00 | NUR ---
PT ASSISTED UP TO SIDE OF BED TO EAT BREAKFAST, DIFFICULTY FOLLOWING DIRECTIONS/OBEYING COMMANDS. ORIENTED TO SELF ONLY, DISORGANIZED THOUGHT PROCESS WHEN SPEAKING, OTHER TIMES A BLANK STARE. SCHEDULED MEDICATIONS ADMINISTERED WITHOUT DIFFICULTY. CONGESTED COUGH REMAINS, 3L NC IN PLACE WITH ADEQUATE SP02. TACHY WITH MOVEMENT 120'S. AFEBRILE. OSMAN CATH DRAINING QS URINE.
--- NOTE | 2022-08-25 11:00 | NUR ---
prn ativan administered for ciwa score of 14. Pt resting in bed anixous and hollering out with complaints of headache and the light hurting his eyes. Remains only oriented to self, needing frequent reorientation to stay in bed and not pull on thakur cath. bed alarm on, door open.
--- NOTE | 2022-08-25 12:27 | NUR ---
PT UP TO CHAIR USING JACLYN LIFT - PT COMPLAINS OF WORSE HEADACHE "A LOT" WHEN ASKED, "OH HELL YEAH" WHEN ASKED TO LOOK OUT THE WINDOW FOR LIGHT SENSITIVITY. PT CALLING OUT FOR FATHER, ASKING NURSING STAFF TO POUR HIM A DRINK OF ALCOHOL. ADDITIONAL 1MG ATIVAN ADMINISTERED IV.
--- NOTE | 2022-08-25 13:08 | NUR ---
PT ASSISTED WITH LUNCH - EATING APPROX 50%. PT REMAINS UP IN CHAIR, CALLING OUT WHEN STAFF NOT DIRECTLY IN ROOM. MILD TREMOR REMAINS, APPEARS LESS FIGITY IN CHAIR. . WILL CONTINUE TO REASSESS.
--- NOTE | 2022-08-25 14:37 | NUR ---
PT REMAINS UP IN CHAIR WITH LEGS ELVATED. OSMAN CATH PATENT AND DRAINING QS URINE. PT ORIENTED TO SELF ONLY, AGGITATION AND CALLING OUT DECREASING SOME. MILD TREMOR NOTED, NO OTHER SIGNS OF ETOH WITHDRAWL. DOOR OPEN.
--- NOTE | 2022-08-25 15:22 | NUR ---
PT TRANSFERED TO WHEELCHAIR USING JACLYN LIFT AND PUSHED AROUND HALLWAY - BACK TO BED WITH BED ALARM ON, RESTING WITH EYES CLOSED INTERMITANTLY. VS REMAIN STABLE.
--- NOTE | 2022-08-25 17:40 | NUR ---
PT REPOSISTIONED TO CHAIR TO EAT DINNER. GRANDSON AT SIDE.
--- NOTE | 2022-08-25 19:30 | NUR ---
PT ASSESSED AND FOUND AWAKE, ALERT TO PERSON ONLY WITH A GCS OF 14. PT FOLLOWS SIMPLE COMMANDS. CMS INTACT X 4. LS ASSESSED AND FOUND TO BE COARSE TO DIMINISHED THROUGHOUT WITH EXPIRATORY WHEEZES NOTED BILATERALLY. PT WITH SCHEDULED DUEL NEB. PT RESPIRATIONS ARE NON-LABORED. BASELINE V/S OBTAINED. ALARM PERAMETERS SET. PT PLACED IN POSITION OF COMFORT. OSMAN CATH CARE PERFORMED WITH CHG WIPE. PT INSTRUCTED ON USE OF CALL LIGHT, AND CALL LIGHT PLACED IN PT'S HAND.
[2022-08-26] VITALS (28 sets, daily range): BP systolic 70–121; BP diastolic 31–98
--- NOTE | 2022-08-26 05:22 | NUR ---
PT WITH NOTED RHYTHM CHANGE, POSSIBLY ACCELERATED VENTRICULAR TACHYCARDIA WITH RATES NOTED IN THE 230S. PT ASSESSED AND NON RESPOSNIVE TO VERBAL STIMULI. STERNAL RUB PERFORMED AND PT AWAKENS RAPIDLY. RHYTHM NOTED TO CONVERT BACK TO A-FIB IMMEDIATELY AFTER STERNAL RUB. V/S REASSESSED, PT DENIES ANY PAIN/ DISCOMFORT. LABS BEING DRAWN AT THIS TIME. MD CONSULTED, NEW ORDERS OBTAINED FOR 12 LEAD, MAG, PT & INR. PT REMAINS ALERT TO SELF AND IS FOLLOWING COMMANDS.
--- NOTE | 2022-08-26 06:37 | NUR ---
PT REMAINS DIFFICULT TO ARROUSE, REQUIRING PAINFUL STIMULI AT TIMES. PT CONTINUES TO BE ALERT TO SELF ONLY. PT INTERMITTENTLY FOLLOWS SIMPLE COMMANDS. PT CONTINUES TO BE EXPERIENCING TACHYPNEA. LS ARE COARS AND DIMINISHED THROUGHOUT WITH BILAT. EXPIRATORY WHEEZES. PT HAS BEEN IN A-FIB, NORMOTENSIVE AND A-FEBRILE THROUGHOUT THE NIGHT. NO NEW RYTHM CHANGES NOTED. PT WITH ADEQUATE UO. LAST BM UNKNOWN. PT REMAINS IN A-FIB WITH NO ANTI-COAG MEDICATION ORDERED. PT IS RECEIVING LOVENOX FOR DVT PROPHALAXIS. MD CONSULTED REGARDING NEED FOR ANTI-COAG. NO NEW ORDERS OBAINED. PT WITH ADEQUATE U/O. LABS: H/H STABLE, WBC WNL, NA 135, K 3.5, BUN/CREAT. 7/.59. MAG 1.8. LIVER ENZYMES NEGATIVE. PT/INR 12.8/1. EKG REVEALS A-FIB WITH PVCS. CIWA SCORE IMPROVED. PT REQUIRED 1 PRN THROUGHOUT THE NIGHT.
--- NOTE | 2022-08-26 08:45 | NUR ---
RN IN ROOM WITH MD ROUNDING - PT MINIMALLY RESPONSIVE TO QUESTIONS ASKED. DEEPER MORE CONGESTED COUGH NOTED WITH PT HAVING DIFFICULTY COUGHING UP SPUTUM, WHEEZING MORE PRONOUNCED AFTER NEB TX. UPDATED POC DISCUSSED WITH MD TO OBTAIN CXR. REMAINS ON 4L OXYMASK TO MAINTAIN SPO2. CIWA ASSESSMENT NEGATIVE AT THIS TIME. BED ALARM ON.
--- NOTE | 2022-08-26 09:41 | NUR ---
SCHEDULED MEDICATIONS ADMINISTERED, PT ABLE TO SWALLOW WITHOUT DIFFICULTY BUT REMAINS DROWSY. HOB KEPT IN >30 DEGREES. FAMILY IN ROOM TO VISIT, PT EXCITED TO SEE THEM.
--- NOTE | 2022-08-26 10:00 | NUR ---
FULL BED BATH COMPLETE AFTER PT INC OF STOOL. OSMAN CARE COMPLETE. ALLYVN PLACED ON COCCYX FOR PREVENTION. LINENS CHANGED, ORAL CARE COMPLETE. PT TOLERATED RECLINED POSISTION AND ROLLING WELL WITH OXYGENATION NOT NEEDING INCREASED. FAMILY BACK IN ROOM TO VISIT. ALL QUESTIONS ANSWERED ON POC.
--- NOTE | 2022-08-26 10:59 | NUR ---
CXR COMPLETE - FAMILY REMAINS IN ROOM VISITING. VS WNL ON MONITOR AT RN STATION.
--- NOTE | 2022-08-26 12:26 | NUR ---
RT IN ROOM ADMINISTERING NEB TX. PT SPO2 STABLE ON ROOM AIR HOWEVER WORK OF BREATHING APPEARS TO BE WORSENING, APENIC WITH SNORING. DISCUSSED WITH RT, WILL AWAIT CXR RESULTS FOR FURTHER EVALUATION.
--- NOTE | 2022-08-26 13:30 | NUR ---
ASSESSMENT COMPLETE, PT ONLY AROUSING TO PAINFUL STIMULI, RR CONTINUING TO INCREASE WITH MINIMAL AIR MOVEMENT, SP02 STABLE WITHOUT NEED FOR INCREASE 02 DELIVERY. RT AND MD CONSULTED. ORDERS RECEIVED FOR VBG AND CPAP. CXR RESULTS DISCUSSED WITH MD.
--- NOTE | 2022-08-26 14:43 | NUR ---
PT RESTING IN BED WITH HOB ELEVATED WITH CPAP IN PLACE, RR 30'S WITH IMPROVED AIR MOVEMENT ON AUSCULATION.
--- NOTE | 2022-08-26 16:22 | NUR ---
PT REPOSISTIONED, MIMIMAL RESPONSIVENESS WITH PIPE SUPERVISOR WITH MOVEMENT. REMAINS ON CPAP, RR 26, SP02 95.
--- NOTE | 2022-08-26 16:53 | NUR ---
ATTEMPTED TO PLACE PT FROM BIPAP TO CPAP. CPAP VT'S WERE LESS THAN 150 AND VE IS LESS THAN 175. PLACED PT BACK ON BIPAP WITH A BACK UP RATE OF 15. VT'S ARE 350-400 AND VE IS 8. PT SLEEPING VERY HEAVILY AND NOT AROUSING UNLESS STERNAL RUBED.
--- NOTE | 2022-08-26 17:01 | NUR ---
PT SWITCHED TO BIPAP SETTINGS BY RT TO FACILITATE TITAL VOLUME. PT RESTING WITH EYES CLOSED, NO CHANGE IN RESPONSIVNESS. ORAL MEDS HELD. WILL CONTINUE TO MONITOR.
--- NOTE | 2022-08-26 18:17 | NUR ---
PT REPOSISTIONED IN BED, WAKES WITH VOICE AND MOVEMENT BUT REMAINS LETHARGIC. VS STABLE - BIPAP AT 35% FI02.
--- NOTE | 2022-08-26 19:00 | NUR ---
MD UPDATED ON PT STATUS, GSC WITH BIPAP CONCERNING, MD AND RT AT BEDSIDE. BP 85/71, 500ML BOLUS STARTED PER VERBAL ORDER. BIPAP MACHINE CHANGED BY RT. PT ABLE TO SQUEEZE HAND OF MD WITH STERNAL RUB STIMULI, OTHERWISE NO RESPONSE TO VOICE OR MOVEMENT.
--- NOTE | 2022-08-26 21:55 | NUR ---
PT BP CONTINUES TO BE SOFT DESPITE PREVIOUS FLUID BOLUS. THIS RN CALLED HOSPITALIST, ORDERS RECIEVED AND IMPLEMENTED, WCTM.
--- NOTE | 2022-08-26 22:04 | NUR ---
SEE PREVIOUS NOTE REGARDING CALL TO HOSPITALIST
--- NOTE | 2022-08-26 22:55 | EKG ---
[facility] [address] [place] [address] Signed Atrial fibrillation with premature ventricular or aberrantly conducted complexes Low voltage QRS Abnormal ECG When compared with ECG of 23-AUG-2022 17:26, QT has shortened Confirmed by Kayli Ewing MD () on 08/26/2022 10:55:37 PM Electronically Signed By: KAYLI EWING MD 08/26/22 2255 PATIENT NAME: PARKER ELLIS Electrocardiogram DATE OF : 46 PHYSICIAN: KAYLI EWING MD REPORT #: [id number] REPORT IS CONFIDENTIAL AND NOT TO BE RELEASED WITHOUT AUTHORIZATION
--- NOTE | 2022-08-26 23:14 | NUR ---
PT MORE AWAKE, REQUESTING TO TAKE OFF BIPAP MASK, THIS RN REMOVED MASK, PLACED PT ON 4L OXYMASK, GAVE PT A DRINK OF WATER, PT VERBALIZES APPRECIATION, PT ALERT TO SELF, UNABLE TO REMEMBER DATE, PLACE OR WHY HE IS HERE, THIS RN ATTEMPTS TO REORIENT PT. PT WATCHING TV, CALL LIGHT IN REACH DENIES NEEDS AT THIS TIME.
[2022-08-27] VITALS (26 sets, daily range): BP systolic 77–165; BP diastolic 48–124
--- NOTE | 2022-08-27 02:54 | NUR ---
PT APPEARS TO BE RESTING COMFORTABLY, VSS, CALL LIGHT IN REACH
--- NOTE | 2022-08-27 03:48 | NUR ---
PT BP ALARMING HIGH BP 232/190, THIS RN RECYCLED BP 68/34, MANUAL BP SHOWED 98/52, REPOSITIONED CUFF RECHECKED BP 85/57 (66), PT AROUSABLE TO VOICE, FOLLOWS COMMANDS BUT FALLS RIGHT BACK TO SLEEP, SLIGHTLY MORE DIFFICULT TO AROUSE THAN PREVIOUSLY IN SHIFT
--- NOTE | 2022-08-27 04:05 | NUR ---
CALLED HOSPITALIST DR EWING, D/T PT BP 77/48, ORDERS FOR 250ML BOLUS OVER 1 HR FOLLOWED BY ADDITIONAL 250ML BOLUS OVER 1 HOUR THEN CONTINUE WITH MAINTINENCE IVF, ALSO WILL ATTEMPT TO REPOSITION PT.
--- NOTE | 2022-08-27 05:04 | NUR ---
THIS RN IN ROOM, PT AWAKE IN BED WATCHING TV, VSS, DENIES NEEDS AT THIS TIME
--- NOTE | 2022-08-27 06:22 | NUR ---
PT APPEARS TO BE SLEEPING, BP CONTINUES TO BE SOFT- MAP >65, PT AWAKENS TO VOICE, ALERT TO SELF AND HAS BEEN APPROPRIATE FOR THIS RN THIS SHIFT, 2 PIVS FLUSH WELL, LS COARSE/DIM RESPIRATIONS SHALLOW, LBM 08/26/22, UO 305ML OVERNIGHT
--- NOTE | 2022-08-27 07:30 | NUR ---
report from Claudia rn, pt with iv ns@125, thakur to gravity, bipap. call light in reach.
--- NOTE | 2022-08-27 08:20 | NUR ---
call to dr stapleton to review bp, and am meds - will come over to see pt before meds given. pt confused to date, knows year, place. knows his pcp and town. cough is course and lungs dim 95 % on 4 l nc. in at 8:26 to visit with pt.
--- NOTE | 2022-08-27 08:30 | NUR ---
Spoke with Mushtaq. He states he is doing well. RT giving a tx. Discussed with pt what his needs are. He states concern as he feels his has dementia. He feels he needs to go to a SNF to get stronger, but is concerned for his . I asked if he is withdrawing from alcohol and he states he is, but not as bad as last time. Pt holds hand up and is not shaking. I asked if he had stopped drinking and he states he has cut back. I asked what he considers cutting back and he states, "I'm down to 1/2 5th from a full 5th daily." He states he liked [place] in the past and would like to return. Let him know I will send the updated notes for the weekend.
--- NOTE | 2022-08-27 08:34 | NUR ---
dr bailey order to hold aron now.
--- NOTE | 2022-08-27 09:30 | NUR ---
PATIENT TRANSFER TO CHAIR FROM BED WITH 2PA(STAND AND PIVOT). BEDBATH AND OSMAN CARE PROVIDED, LEGS ELEVATED. MORNING MEDS GIVEN BY JULIUS HOPE. CALL LIGHT IN EASY REACH, PATIENT REORIENTED STRAIGHTENING PRESS OPERATOR HELPER LIGHT USE.
--- NOTE | 2022-08-27 09:43 | NUR ---
PATIENT WEARING BIPAP, C/O "CAN'T BREATHE" PATIENT STATES REFUSES TO WEAR IT. O2 NC ON AT THIS TIME. PATIENT REQUESTS TO SIT ON BSC AND THEN SAYS NEVERMIND. PATIENT CAN BE REDIRECTED, HOWEVER CONTINUES TO CALL OUT SOON STAFF LEAVES THE ROOM "PLEASE HELP ME"
--- NOTE | 2022-08-27 10:11 | NUR ---
2 PA TO GET PATIENT ONTO BSC. PATIENT SAT SEVERAL MINUTES , UNABLE TO HAVE BM. PATIENT C/O OF BEING DIZZY, AND BACK TO HIS BED AT THIS TIME. PATIENT CONTINUES TO YELL AND CALL OUT FOR "HELP" THE MINUTE STAFF LEAVES HIS BEDSIDE.
--- NOTE | 2022-08-27 10:33 | NUR ---
in room with pt and supervisor malt house gurpreet pt reported that he soiled bed - when turned he denies that he said that to supervisor malt house and he is clean with thakur to gravity draining yellow urine, alyvn to coccyx intact - pt yelling out that he wants his kids and over and over - yelling out - rn in room charting at bedside to comfort pt and talk. pt is confused on event and plan. he does not know how or why he is here.
--- NOTE | 2022-08-27 10:46 | NUR ---
pt refusing bipap. in bed with 4l nc oxygen and call light.
--- NOTE | 2022-08-27 10:52 | NUR ---
pt encouraged and using resp trumpet - he keeps helling oh god and wants to talk to his - this rn dialed his phone and clay did not answer at home, he held phone to ear and could hear it ring. will try again.
--- NOTE | 2022-08-27 11:53 | NUR ---
PATIENT UP TO BSC FOR LRG FORMED BM. 1PA TO GET PATIENT BACK TO BED. GRANDDAUGHTER IN ROOM. R/T AT BEDSIDE AT THIS TIME.
--- NOTE | 2022-08-27 12:04 | NUR ---
harris pereira called for update, and she requested a call from bj plan - this rn gave her number and concern to lucille pacheco, grand dtg in room with pt - he is restless and set up for meal hob up. call light in reach. non productive cough - enc to spit out phlem.
--- NOTE | 2022-08-27 12:18 | NUR ---
Called and spoke with Dr. Ramírez. He states pt will possible dc near the end of the week.
--- NOTE | 2022-08-27 13:09 | NUR ---
pt repositioned in bed hob up after iv attempt by jair pacheco, iv in left ac is positional in ac and keeps beeping. pt refused lunch - offered and denied ensure or other supplements. pt is agreeable and eats a charley. pie that is at bedside. pt yells at rn "fuck you" im not gonna hold still - asks if my mom is still here, lets get out of here!! - kindly re orineted pt to hospital and he is asking for scissors to cut his iv line and pulling at them. re secured. coughs with course sounds - not expectorating anything - but encouraged to spit out. pt now settled with rn company - and drinks water well.
--- NOTE | 2022-08-27 14:00 | NUR ---
pt confused calling this nurse by the name shakira - stated he needed to pee - showed him the cathater- moved pt to [facility] [place] bm, semi formed brown, back to bed with new linen and ligia/cath care complete. pt confused yelling out obsenity then being nice, water refilled and i/o completed - lotion to extrmities - dry flakey skin noted - pt oxygen 100 % 4L nc. pt re oriented. call light in reach
--- NOTE | 2022-08-27 14:15 | NUR ---
O/T IN TO SEE PATIENT, PATIENT REFUSED,"MY TEETH ARE FLOATING, I NEED TO GO PEE SO BAD." THIS BAND AID MACHINE OPERATOR AND O/T BACK IN ROOM TO ENCOURAGE PATIENT TO PARTICIPATE, PATIENT C/O OF URGE TO VOID. PATIENT STOOD AT SIDE OF BED HE WAS INCONTINENT OF SOFT/LIQUID STOOL, PATIENT ONTO BSC AT THIS TIME. BED AND PATIENT CLEANED UP, DURING CTIVITY, IV WAS PULLED OUT. RN NOTIFIED. PATIENT BACK INTO BED, DAUGHTER AT BEDSIDE AT THIS TIME.
--- NOTE | 2022-08-27 15:48 | NUR ---
bi pap on with dtg kelli at bedside, pt confused, daughter acknoledges his confusion - pt yelling help, help but both daughter and rn are at bedside. pt reassured. call light and daughter in reach.
--- NOTE | 2022-08-27 16:22 | NUR ---
pt pulled off bipap - rn assisted to place on 4 L nc 97 % on 4l. pt confused, in bed with daughter at side.
--- NOTE | 2022-08-27 16:54 | NUR ---
pt continues to be agitated, changed position - 2 person assist with fww to bsc - reina parra bm noted, ligia care done and pt tsf to bed, pt continues to be restless, so we 2 person assist trsf to ch and elevated feet. family in room, pt agitated and complaining about having a cathater/thakur and wanting his here, re assured she was safe at home and facilitated a phone call. pt call light in reach - iv mvi fusing at this time in [facility] iv placed by vera in r arm wnl.
--- NOTE | 2022-08-27 18:00 | NUR ---
PATIENT ASKING FOR HELP TO PEE, TRIED TO RE-INFORM PATIENT ABOUT HAVING A OSMAN. TRIED TO HELP PATIENT WITH DINNER. PATIENT IMMEDIATLEY PUTS FOOD BACK ON PLATE AND PUSHES IT AWAY WHEN GIVEN FINGER FOOD AND WON'T ALOW ANY HELP WITH EATING. FAMILY IS IN ROOM AT THIS TIME. RN NOTIFIED.
--- NOTE | 2022-08-27 18:14 | NUR ---
pt confused - asking to be up to have bm - while on bsc he is arguing that he needs to have bm, cussing at staff- yells i don't know what i am doing? poor intake at dinner - only bites of yogurt and water. pt back to bed after bm.
--- NOTE | 2022-08-27 18:44 | NUR ---
pt yelling out - wants to know where we are and where I was at? he wants to know what we are doing, re oriented, call light in reach and bed alarm on, family has left.
--- NOTE | 2022-08-27 19:01 | NUR ---
THIS LAMP INSPECTOR ENTERED IN VITALS FROM THROUGHOUT THE DAY UPON RN REQUEST, FROM OFF OF MONITOR. RN AWARE OF VITALS.
--- NOTE | 2022-08-27 20:56 | NUR ---
PT CONTINUES TO C/O FEELING THE NEED TO VOID URINE. MIAN RED URINE WITH BLOOD CLOTS NOTED IN OSMAN. BLADDER SCANNED WITH 40 CC NOTED. BLADDER IRRIGATED WITH 60 CC STERILE WATER. 70 CC OF RETURN NOTED.
--- NOTE | 2022-08-27 21:27 | NUR ---
DR. KENYON CONSULTED REGARDING BLOOD IN OSMAN CATHETER, REDUCED U/O AND CONCERN FOR DEMENTIA OR ALZEIMERS. PT IS BEING TREATED FOR ALCOHOL WITHDRAWL, BUT NO EVIDENCE OF ALCOHOL CONSUMPTION NOTED. CHART REVEIW REVEALED A BLOOD ALCOHOL LEVEL WAS NOT OBTAINED, LIVER ENZYMES NEGATIVE, AND AMMONIA LEVEL NORMAL. PT WITH NO NOTED TREMORS, IS NON DIAPHRETIC AND NO NOTED VISUAL, AUDITORIAL OR TACTILE HALLUCINATIONS/ DISTURBANCES. PT REMAINS ALERT TO SELF ONLY SINCE ADMISSION. ON DAY FOUR OF HOSPITAL ADMISSION, HIS NEURO STATUS REMAINS UNCHANGED AND HIS CIWA SCORES REMAIN ELEVATED D/T SEVERE ANXIOUSNESS, AGITATION, AND ALTERED MENTAL STATUS. INFORMED BY DR. KENYON TO CONTINUE EVALUATING PT'S CIWA AND TREATING PT FOR ALCOHOL WITHDRAWLS. ALSO, DR. KENYON NOTED SHE WAS AWARE OF THE PT'S U/O AND STATED "WHATEVER HIS URINE OUTPUT MAY BE THROUGHOUT THE NIGHT WILL BE FINE." THROUGHOUT THE NIGHT WILL BE FINE."
[2022-08-28] VITALS (17 sets, daily range): BP systolic 95–137; BP diastolic 51–96
--- NOTE | 2022-08-28 00:27 | NUR ---
UO REDUCED. OSMAN CATHETER WITH CONTINUED MIAN RED BLOOD AND CLOTS. DR. KENYON ALREADY AWARE. BLADDER IRRIGATED WITH 60 CC STERILE WATER. 150 CC OF OUTPUT NOTED.
--- NOTE | 2022-08-28 01:10 | NUR ---
LAB REPORT TO ICU WITH FINAL UC/C&S REPORT + FOR KLEBSIELLA PNEUMONIAE. PT IS CURRENTLY RECEIVING 2 G IV OF CEFTRIAXONE DAILY. CULTURE AND SUSCEPTIBILITY REPORTS THE ORGANISM IS SUSCEPTABLE TO CEFTRIAZONE. PT IS HEMODYNAMICALLY STABLE. RESULTS TO IN AM.
--- NOTE | 2022-08-28 01:58 | NUR ---
pt YELLING OUT "LUIS, LUIS". SPO2 DROPS TO 86%, RN IN ROOM. OXYGEN OUT OF NARES. BIPAP APPLIED AT THIS TIME. BLANKETS PROVIDED TO pt. REORIENTATION TO PLACE, TIME OF DAY, PLAN OF CARE PROVIDED TO pt. CALL LIGHT IN REACH.
--- NOTE | 2022-08-28 06:34 | NUR ---
PT REMAINS AWAKE TO PERSON ONLY. PT FOLLOWS SIMPLE COMMANDS PUT CONTINUES TO PULL AT LINES AND NEED CONSTANT RE-DIRECTION THROUGHOUT THE NIGHT. PT CONTINUES TO HAVE ELEVATED CIWA A RESULT OF CONFUSION, AGITATION AND INCREASED LEVELS OF ANXIOUSNESS. PT WITHOUT HALLUCINATIONS, TREMORS, N/V OR BROWN. WILL RELAY CONCERN FOR DEMENTIAL VS ALCOHOL WITHDRAWLS TO JOEY MADRID. PT'S RESPIRATIONS ARE NON-LABORED. LS DIMINSHED THROUGHOUT. PT COMPLIANT WITH BIPAP FOR 3 TO 4 HRS. BIPAP SETTINGS CHANGED TO 14/7 WITH 30% FIO2. PT REMAINS IN A-FIB, NORMOTENSIVE, AND A-FEBRILE. PT WITH REDUCED U/O, AWARE AND NO NEW ORDERS OBTAINED. PT CONTINUES TO HAVE MIAN RED BLOOD NOTED IN OSMAN CATHETER, AWARE AND NO NEW ORDERS OBTAINED. PT IS RECEIVING LOVENOX FOR DVT PROPHALAXIS. PT HAS NOT BEEN TX WITH ANY ANTICOAGS THROUGHOUT HOSPITAL ADMISSION. AWARE AND NO NEW ORDERS OBTAINED. NO LABS OBTAINED THIS AM.
--- NOTE | 2022-08-28 07:15 | NUR ---
report from daniel rn, pt yelling out confused, in bed alarms delivery person light in reach rn to reorient pt.
--- NOTE | 2022-08-28 09:00 | NUR ---
IN ROOM WITH DR KENYON FOR ROUNDS, PT HAS 350 ML RED TINGED URINE IN OSMAN - DR AWARE, PT CONFUSED AND ANSWERS SOME QUESTIONS, SWEARS AT STAFF, APPEARS VERY TIRED. ATE ALL OF HIS YOGURT WITH RN FEEDING. POOR HAND TO MOUTH COORDINATION.
--- NOTE | 2022-08-28 10:00 | NUR ---
IN ROOM WITH OT ROULA ORTIZ PT TO GET UP TO BSC, HE IS ABLE TO TRSF WITH MAX ASSIST, NO BM - OSMAN IN PLACE DRAINING URINE. RETURNED TO BED - BIPAP REPLACED, PT AGITATED. CALL LIGHT IN REACH DENIES OFFERS OF JUICE.
--- NOTE | 2022-08-28 11:30 | NUR ---
Spoke with pt. He is confused and not feeling as well today. R hand has a significant tremor. Nurse in . I will update Mary.
--- NOTE | 2022-08-28 12:16 | NUR ---
rn in room to help with lunch feeding, hob up - pt refused chair. small bites given to pt of chicken, drink of oj and water - then pt refused any more - refused to feed himself. he is very concerned that he feels like he needs to pee, thakur draining dark urine with blood ting in it as he keeps pulling his cath. secured with a stat lock to leg and draining qs to gravity. pt has had flowmax today. very agitated and confused - po ativan given. call light in reach.
--- NOTE | 2022-08-28 12:26 | NUR ---
pt restless - refused more lunch - cath care done, used lidocaine jel for comfort and manipulated cath - no clots, draining urine with more yellow color to it, pt very agitated and bipap is replaced and on with nurse at bedside to comfort.
--- NOTE | 2022-08-28 13:00 | NUR ---
rn suspicious of bladder/thakur irritation, 150 ml of urine with blood was out after irrigation done prior with no changes. emptied thakur bag - then rn palpated abd/bladder area to be tight/firm and in spasms. bladder scan reveled greater than 650 ml - urojet lidocaine used to lube thakur that was already in and international marketing executive the red rubber cath into the bladder more - this caused lg amt of dark brown urine to drain with manipulation. security guard supervisor brendon called [facility]. new water placed in balloon of thakur and urine continued to drain 700 ml of urine on return. re check of bladder scan and only balloon was noted at 6 ml per us scan estimate. pt relaxed and abdomen was less tender - pt was able to keep bi pap on with task and started to fall asleep. resp rate 19, sats 97 % eyes closed and pt less restless. bed alarm is on and call light in reach. curtains dimmed for pt to rest.
--- NOTE | 2022-08-28 14:00 | NUR ---
pt continues to rest with bipap on, thakur draining 350 ml of clear yellow urine. call light in reach.
--- NOTE | 2022-08-28 15:03 | NUR ---
pt awakens, rn assisted to remove bipap for a break, nc3l sats 96%, pt closes eys and resp rate 27. thakur is now draining clear yellow urine. pt denies pain at this check in, congested cough and lung sounds, call to rt to ask about cpt vest or percussion. call light in reach.
--- NOTE | 2022-08-28 15:12 | NUR ---
this rn emptied 750 of clear yellow urine made since 1300. pt continues to rest hr 79, bp 122/78 call light in reach. nc on.
--- NOTE | 2022-08-28 15:45 | NUR ---
updates to dr cuevas on thakur output, and pt wearing bipap and napping well. pt continues to rest, with call light in reach.
--- NOTE | 2022-08-28 17:00 | NUR ---
rn in to wake pt for meal - windows wide open and room bright - pt had 450 ml of clear yellow urine in thakur - up to side of bed to sit with feet on floor for meal - refused to stand to get in chair - rn assisted pt to eat at side of bed, grapes, charley. pudding, sips of ensure and a few bites of roast taken in, pt then stood with 2 rns to sit higher in the bed to reposition. hob up and pt turned to right side, call light in reach - clay called and pt said a few words then said he had to go.. confused, then after call he was asking for his kids and sister... moaning and yelling for help while rn was at bedside. attempted to re orient - bed alarm on. call light in reach.
--- NOTE | 2022-08-28 20:13 | NUR ---
PT ASSESSED AND FOUND TO BE LAYING IN HOSPITAL BED, AWAKE TO SELF ONLY. PT FOLLOWS SIMPLE COMMANDS BUT IS NOTED TO BE NON-COMPLAINT WITH INSTRUCTION AND CONTINUES TO PULL AT LINES. ALARM PERAMETERS CHECKED, BASELINE VITALS ASSESSED AND BED ALARM TURNED ON. PT IS IN NO APPARENT DISTRESS, DENIES PAIN/ DISCOMFORT AND STATES HIS SOB REMAINS UNCHANGED.
[2022-08-29] VITALS (20 sets, daily range): BP systolic 88–141; BP diastolic 65–105
--- NOTE | 2022-08-29 06:42 | NUR ---
PT REMAINS ALERT TO PERSON ONLY. PT FOLLOWS SIMPLE COMMANDS BUT CONTINUES TO BE RESTLESS, ANXIOUS AND AT TIMES AGITATED. PT NEEDS CONTINUED RE-ORIENTATION. PT HAS BEEN IN A-FIB, NORMOTENSIVE AND A-FEBRILE. PT WITH ADEQUATE U/O. LAST BM NOTED ON 08/27. OSMAN CATH CARE PERFORMED. PT TURNED FROM SIDE TO SIDE. LABS: H&H STABLE, NA 140, K 3.7, BUN/ CREAT 2/.52, CO2 REMAINS ELEVATED AT 34, WBC NORMAL, BNP ELEVATED FROM 546 UPON ADMISSION TO 679. MAINTENANCE GTT STOPPED, WILL RE-EVALUATE WITH MD FOR FURTHER IV HYDRATION. PT WITH GOOD ORAL INTAKE.
--- NOTE | 2022-08-29 07:20 | NUR ---
PT RESTING IN BED WITH 3L NC OXYGEN ON, YELLING OUT FOR LUIS HIS , REPORT FROM ANT MADRID AND DR KENYON HERE. PT IS ALERT AND CONFUSED, CAN NOT REPORT WHAT HIS OCCUPATION WAS, SLOWLY ANSWERS HIS TOWN WHERE HE LIVES, KEEPS REPEATING COME ON, COME ON, OSMAN IS DRAINING CLEAR YELLOW URINE TO GRAVITY, IV SL, TEMP 97.9. ARMS WITH EDEMA NOTED, AND POOR FRAGILE SKIN.
--- NOTE | 2022-08-29 08:15 | NUR ---
Attempted to speak with pt and he is sleeping soundly.
--- NOTE | 2022-08-29 09:08 | NUR ---
IN TO REPOSITION PT WITH FLOAT JULIUS DELUCA, PT CATH LUBED WITH LIDOCAINE GEL FOR COMFORT AND CATH ADVANCED FOR POSITION AND TO ENSURE PROPER URINE DRAINAGE. YELLOW CLEAR URINE DRAINING. PT DECLINES GETTING OUT OF BED FOR LINEN CHANGE. ORAL CARE, BED BATH AND RAAD CARE DONE. -
--- NOTE | 2022-08-29 09:52 | NUR ---
THIAMINE COMPLETE IV, SL - ARMS ELEVATED ABOVE HEAD, PT RESTING - BIPAP PLACED, RESP 22, 100% ON BIPAP.
--- NOTE | 2022-08-29 11:00 | NUR ---
Call from LARRY at [facility]. Update given and faxed notes, alcohol WD, and PT notes. Discussed per 9:30 meeting pt may not be able to dc by Saturday. I asked if he could admit over the weekend if they accept and per LARRY this is a possibility.
--- NOTE | 2022-08-29 11:02 | NUR ---
COMPLETE BEDDING CHANGE COMPLETED WHILE PT IS SITTING IN RECLINER. PT IS SITTING UPRIGHT REMAINS ONO2, CARDIAC MONITORING, PULS OX, CALL LIGHT IN REACH.
--- NOTE | 2022-08-29 13:51 | NUR ---
pt clay and dtg kelli here to visit - pt calmed and talkative, resting in bed with oxygen via nasal cannula. denies needs - thakur draining yellow urine.
--- NOTE | 2022-08-29 14:36 | NUR ---
JULIUS HOPE CONCERNED THAT PT IS NOT IMPROVING. FAMILY IN WIT PT-INTRODUCED MYSELF. HAD GOOD VISIT, LET THEM SPEND MORE TIME WITH PT. GAVE BLESSING, WILL FOLLOW NEEDED
--- NOTE | 2022-08-29 15:14 | NUR ---
PT IS CONTINUING TO YELL HELP ME, AND "Adair" SETTING OFF BED ALARM, AND WHEN ASKED HOW WE CAN HELP HE HAS NO NEEDS. PT IS AGITATED, NO SHAKES, SLOW TO RESPOND AT TIMES TO QUESTIONS - SOMEWHAT IN APPROPRIATE STATEMENTS, ASKING RN TO GET IN BED OR SAYING "I LOVE YOU". RE DIRECTED PT TO BE APPROPRIATE WITH CONVERSATION, AND STAY IN BED, ALARM ON. WARN BLANKET GIVEN, PT DECLINES WATER. CALL TO DR SHARP FOR UPDATES, SHE IS AWARE.
--- NOTE | 2022-08-29 15:45 | NUR ---
RN AND CLAIMS TECHNICIAN IN ROOM TO RE ASSURE PT, HE IS CALLING OUT PLEASE HELP - ASKING FOR HIS RIDE, ATTEMPTED TO RE ORIENT PT. OXYGEN 4L NC 91% PT SEEMS LIKE IT IS HARD TO FIND THE WORDS, AND IS FRUSTERATED, CONVERSTATION WITH RAIZA TO TRY TO FIND HIS NEEDS. HE SAYS PLEASE, LET ME GO, AND IS AGREEABLE TO WC RIDE.
--- NOTE | 2022-08-29 16:15 | NUR ---
transmitter engineer in charge and this nurse assisted pt to wc with fww to go for ride down the [address] [place] and outside. pt was agreeable and did well standing. pt then down [place] on monitor, 4l nc oxygen 91% - rt mackenzie met in [place], visited with rn and pt - pt continues to yell please help, please help, re assured that he was safe and he can not tell rn what he needs, then he yells oh god I don't want to say the wrong thing - and says he is sorry for talking bad earlier - reminded to be appropriate in conversation if he can. outside in sunshine for 10 min - pt starts yelling take me back, I want my grandparents, where is my mom?? rn takes pt back to [place], we were met by physical therapy ten where she asked for pt to do PT in the skills room with monitor on and she said she had it from here and would bring him back. charge and pattern shop supervisor aware and this rn called the floor to notify of pt in ms pt room.
--- NOTE | 2022-08-29 16:53 | NUR ---
PT TRSF FROM WC TO BED BY DEBRA - THEN SAT AT THE BED FOR RT TREATMENT - FEET ON FLOOR WITH COUGH NOTED - CONT. TO HAVE WHEEZE. PT THEN BACK TO BED HOB UP FOR DINNER - RN ASSISTED WITH FOOD. CALL LIGHT IN REACH. 300 ML CLEAR YELLOW URINE FROM OSMAN.
--- NOTE | 2022-08-29 18:36 | NUR ---
call to dr cuevas to update - pt confusing and yelling - no sleep today, yells to help me but then he doesn't know why, says in appropriate coments to female nurses such as well why don't you get in my bed, etc. asks this nurse not to play thoose games with him when asking him orientation questions, date, time, place - pt not able to answer. pt has set off bed alarm multiple times, and has call light and bed alarm on.
--- NOTE | 2022-08-29 19:43 | NUR ---
PT HAS BEEN YELLING OUT SINCE THIS RN ARRIVED FOR REPORT. PT IS AGITATED, SETTING OFF BED ALARM SITTING UP OUT OF BED. ATIVAN 0.5MG ADMINISTERED AT THIS TIME FOR PT COMFORT. PT IS ABLE TO ANSWER QUESTIONS APPROPRIATE AT TIMES. THEN CONFUSED YELLING OUT "LUIS" HIS 'S NAME.
--- NOTE | 2022-08-29 20:15 | NUR ---
PT CONTINUES TO REQUIRE FREQUENT REASSURANCE, HE CONTINUEST O BE VERY ANXIOUS, HE STATED "I AM VERY STRESSED RIGHT NOW" THIS RN IS ROUNDING FREQUEST HOURLY AND NEED TO CONITNUE TO REASSURE PT THAT HE IS NO T ALONE.
--- NOTE | 2022-08-29 21:03 | NUR ---
PT ATTEMPTING TO LEARN OVER SIDE OF BED, BED ALARM SET OFF. HE IS CONTENT TO RST IN BED QUIETLY WILL STAFF IN ROOM. PT ASKED WHERE HE WAS, PT REORIENTED TO PLACE AND TIME. PT THEN SAID "CAN YOU JUST HOLD MY WHOLE BODY" REMINDED PT THAT IS NO APPROPRIATE, HE SAID "OH, THAT RIGHT, I KNOW THAT, IM SORRY" NO FURTHER CONCERNS PT ADMINISTERED HS MEDICATIONS AND PRN TO ASSIST WITH STRESS/ANXIETY. HE SAID " I GET SO ANXIOUS THIS TIME OF DAY?" HE SAID "I WILL GIVE YOU $50 IF YOU GIVE ME SOMETHING, YOU KNOW WHAT I MEAN?" THIS RN SAID I AM SETTING UP THE ABX THAT ARE ORDERED BY THE DOCTOR AT THIS TIME.
--- NOTE | 2022-08-29 23:48 | NUR ---
PT STILL HAS NOT SLEEP, THIS IS THE SECOND NIGHT OF NO SLEEP PER DAYSHIFT REPORT HE DID NOT SLEEP LAST NIGHT, DESPITE GIVEN ATIVAN AT START OF SHIFT AND SEROQUEL/MELATONIN/VISTRIL AT HS, STILL NO SLEEP. CALLED TO UPDATE ALSO HAVE ANOTHER NURSE IN UNIT TO ASSIST IN HIS NEEDS. NEW ORDER FOR SEROQUEL 25MG PO GIVEN AT THIS TIME
[2022-08-30] VITALS (11 sets, daily range): BP systolic 94–133; BP diastolic 58–86
--- NOTE | 2022-08-30 00:30 | NUR ---
PT CONTINUE TO LEAN OUT OF BED, ATIVAN ADMINISTERED PRN TO ASSIST WITH AGITATION/ANXIETY.
--- NOTE | 2022-08-30 01:16 | NUR ---
PT CONTINUES TO YELL OUT, THIS RN ROUNDING FOR REASSURANCE. V/S STABLE. PT CONFUSED.
--- NOTE | 2022-08-30 01:40 | NUR ---
PT CONTINUES TO REQUIRE FREQUENT ROUNDING TO REASSURE AND REORIENT PT, DUE TO HIM CALLING OUT FOR HELP AND SETTING OFF BED ALARM BY LEANING ON SIDE RAIL.
--- NOTE | 2022-08-30 02:58 | NUR ---
PT NOTED TO HAVE INCREASED WORK OF BREATHING AND MORE CONFUSION, ROBERTO MADRID CALLED Irasema ALLRED TO ASK TO HAVE PT PLACED TO BIPAP AND HAVE AN INLINE TREATMENT.
--- NOTE | 2022-08-30 03:12 | NUR ---
CALLED BY RN TO GIVE PRN TREATMENT AND BIPAP IN HOPES THAT THIS WILL HELP HIM SLEEP. HE DOES NOT USE CPAP/BIPAP AT HOME AND IS ALERT ENOUGH TO PULL OFF AND REFUSE. NO PRN TREATMENTS ARE ORDER AND HE IS NOT CURRENTLY WHEEZING.
--- NOTE | 2022-08-30 03:21 | NUR ---
R.T. ATTEPMTED TO PLACE BIPAP PT REFUSED WOULD NOT TOLERATE/REFUSED TO WEAR.
--- NOTE | 2022-08-30 03:55 | NUR ---
PLACED PT ON BIPAP AT THIS TIME, PT AGREED
--- NOTE | 2022-08-30 04:07 | NUR ---
PT NOW RESTING IN BED EYES CLOSED, BIPAP ON.
--- NOTE | 2022-08-30 05:17 | NUR ---
PT CONTINUES TO REST COMFORTABLY ON BIPAP, EYES CLOSED NO DISRESS NOTED.
--- NOTE | 2022-08-30 07:40 | NUR ---
REPORT RECEIVED FROM NIGHT RN - PT RESTING IN BED WITH HOB ELEVATED, BIPAP IN PLACE, 04/10 WITH 30% FI02. VS STABLE ON MONITOR. DOOR OPEN WITH BED ALARM ON.
--- NOTE | 2022-08-30 09:03 | NUR ---
PATIENT RESTING IN BED, EYES CLOSED AND BIPAP IN PLACE. VITALS AND URINE CHARTED.
--- NOTE | 2022-08-30 10:01 | NUR ---
PT AWAKE AND TAKEN OFF BIPAP. PT ORIENTED TO SELF ONLY, REORIENTED TO PLACE AND SITUATION, NO ANXIETY OR AGGITATION. PT PLACED IN CHAIR POSISITON IN BED TO EAT BREAKFAST AND ABLE TO FEED SELF. CONGESTED COUGH NOTED, ABLE TO CLEAR WITH COUGH. IV WNL. ORAL MEDICATIONS SWALLOWED WITHOUT DIFFICULTY. CALL LIGHT PLACED WITHIN REACH, DOOR OPEN TO RN STATION.
--- NOTE | 2022-08-30 10:30 | NUR ---
RN ROUNDING - PT RESTING IN BED WATCHING TV WITH INTERMITANT YELLING OUT FOR HELP.
--- NOTE | 2022-08-30 11:00 | NUR ---
OT IN ROOM WORKING WITH PT - AMBULATED TO COMMODE USING FWW AND 2 PERSON ASSIST THEN TO CHAIR. SLOW TO RESPOND TO COMMANDS, IMPROVING IN STRENGTH. NOW RESTING IN CHAIR LOOKING OUT WINDOW WITH CALL LIGHT IN REACH. DOOR OPEN TO RN STATION.
--- NOTE | 2022-08-30 11:25 | NUR ---
Lu and I spoke with pt. We asked him where he was and he stated a magical place. We then asked him if he was in the hospital and he told us that he was in [place], to which we informed him he was at [facility]. Asked if he continues to want to go to [place] and he stated that he does.
--- NOTE | 2022-08-30 12:00 | NUR ---
PT RESTING IN CHAIR ASLEEP, 2L 02 VIA NC WITH STABLE VS.
--- NOTE | 2022-08-30 13:00 | NUR ---
PT RESTING IN CHAIR, NO DISTRESS NOTED. DOOR OPEN TO RN STATION.
--- NOTE | 2022-08-30 14:33 | NUR ---
PT ASSISTED BACK TO BED USING FWW AND 2 PERSON ASSIST. PHYSICAL THERAPY IN ROOM TO COMPLETE EXERCISES. REMAINS ON 2L NC, NEEDING SOME MOMENTARY INCREASE IN 02 NEEDS WHILE AMBULATING.
--- NOTE | 2022-08-30 15:13 | NUR ---
Updated notes of CIWA, daily progress notes, and OT for 08/30/2022.
--- NOTE | 2022-08-30 15:42 | NUR ---
PT RESTING IN BED WITH EYES CLOSED WITH HOB ELEVATED, NC IN PLACE, VS STABLE WNL.
--- NOTE | 2022-08-30 17:45 | NUR ---
PT SITTING UP IN BED EATING DINNER WITH MINIMAL ASSISTANCE. REMAINS ORIENTED TO SELF ONLY, CALLING OUT OCCASIONALLY FOR HELP BUT UNABLE TO VERBALIZE NEEDS ONCE IN ROOM.
--- NOTE | 2022-08-30 18:52 | NUR ---
PT REPOSISTIONED IN BE WITH ARMS FLOATED. I/O COMPLETE.
[2022-08-31] VITALS (12 sets, daily range): BP systolic 88–118; BP diastolic 49–76
--- NOTE | 2022-08-31 00:36 | NUR ---
ENTERED ROOM AND WOKE PATIENT FROM SLEEP. RECHECKED BP. IT IS 90/61 MAP IN 70S. PATIENT IS COMFORTABLE IN BED. BED ALARM IN PLACE. CALL LIGHT WITHIN REACH.
--- NOTE | 2022-08-31 02:52 | NUR ---
PATIENT IS RESTING IN BED. BED IN LOW POSITION, CALL LIGHT WITHIN REACH, AND BED ALARM IS ON.
--- NOTE | 2022-08-31 04:18 | NUR ---
PATIENT IS RESTING IN BED. BED IN LOW POSITION, CALL LIGHT IS IN REACH, BED ALARM IS ON
--- NOTE | 2022-08-31 07:35 | NUR ---
REPORT RECEIVED FROM NIGHT RN - PT RESTING IN BED AWAKE EATING [employer] BREAKFAST SANDWHICH WITH DAUGHTER AT BEDSIDE. DENIES NEEDS OR COMPLAINTS AT THIS TIME.
--- NOTE | 2022-08-31 08:15 | NUR ---
ASSESSMENT COMPLETE - BED BATH AND LINEN CHANGE COMPLETE AFTER PT INC IN BED OF BM. NO FURTHER SKIN BREAKDOWN NOTED. OSMAN CARE COMPLETE, DRAINING CLOUDY CONC URINE. PT DENIES PAIN. REMAINS ON 2L NC WITH ADEQUATE SPO2. VS STABLE.
--- NOTE | 2022-08-31 10:04 | NUR ---
PT RESTING IN BED, VS STABLE ON MONITOR.
--- NOTE | 2022-08-31 11:34 | NUR ---
PT RESTING IN BED WATCHING TV. DENIES NEEDS AT THIS TIME. DOOR OPEN TO RN STATION.
--- NOTE | 2022-08-31 12:20 | NUR ---
RECIEVED BED SIDE REPORT FROM JULIUS FIORE.
--- NOTE | 2022-08-31 12:45 | NUR ---
PT BROUGHT TO MS ROOM 110, VIA RECLINER. PLACED ON 2L NC, SPO2 96%. PT ORIENTED TO CALL LIGHT, IN REACH.
--- NOTE | 2022-08-31 14:00 | NUR ---
Spoke with Crescencio. He is unable to state where he is. He is very pleasant. He does cont. to want to dc [place].
--- NOTE | 2022-08-31 14:01 | NUR ---
ASSESSMENT COMPLETE. PT RESTING IN CHAIR, EYES CLOSED, BREATHING EVEN AND UNLABORED. EASY TO AROUSE. PT ORIENTED TO SELF AND PLACE. EXP WHEEZE HEARD IN ALL LOBES. KAITY HOSE REMAINS ON LEFT ARM. DENIES PAIN AT THIS TIME. CALL LIGHT IN REACH.
--- NOTE | 2022-08-31 15:31 | NUR ---
PT AWAKE, IN RECLINER. INSP/EXP WHEEZE HEARD UPPER AND LOWER RIGHT LOBE, EXP WHEEZE HEARD UPPER AND LOWER LEFT LOBE. PT ORIENTED TO SELF AND PLACE. PT STATES HE HAS TO PEE, THIS RN NOTIFIED PT HE HAS A CATHETER AND PT STATES HE IS AWARE. CALL LIGHT IN REACH.
--- NOTE | 2022-08-31 16:15 | NUR ---
IN ROOM. GIVEN AN UPDATE OF POC. CONCERNED WHAT THE PLAN IS EXPLAINED THAT WE ARE WAITING TO HEAR BACK FROM [facility].
--- NOTE | 2022-08-31 17:20 | NUR ---
Patient's family updated regarding plan of care, all questions answered. Patient sitting up in chair, alert to self and place, no acute distress. Patient remains on 2L oxygen per nc, respirations non labored.
--- NOTE | 2022-08-31 19:15 | NUR ---
BEDSIDE REPORT RECEIVED PER ALFREDO RN, PT SITTING IN CHAIR WITH LEGS ELEVATED, ALERT, CONCERNED WITH SOMETHING FAMILY SAID ABOUT THE OF HIS MOTHER, SUPPORT GIVEN, PT WITH PERIODIC MOIST COUGH, FREQUENTLY CALLING OUT WHEN LEFT ALONE.
--- NOTE | 2022-08-31 19:46 | NUR ---
pt SITTING IN CHAIR, CALLING OUT FOR HELP. pt FORGETFUL, HX DEMENTIA. DR KENYON IN ROOM AND CHATTING WITH pt. pt IN VIEW OF RN STATION TO CLOSELY MONITOR.
--- NOTE | 2022-08-31 20:20 | NUR ---
DR KENYON TO ROOM TO VISIT WITH PATIENT.
--- NOTE | 2022-08-31 21:26 | NUR ---
VS DONE PER PLATE SENSITIZER AND NOTED, PLAN TO MONITOR.
--- NOTE | 2022-08-31 22:10 | NUR ---
PT ASSISTED TO BED WITH FWW AND 2 PERSON ASSIST, FOLLOWS DIRECTION FAIRLY WELL, ASSESSMENT COMPLETED, RT SEROQUEL 50MG PO GIVEN PER ORDER, PT DECLINES MELATONIN STATING IT "DOESN'T WORK". SF FLUSHED AND FOUND TO BE LEAKING, SL D'JERRY INTACT, PRESSURE DRESSING TO SITE, BLEEDING STOPPED AFTER 1 MINUTE, OSMAN REMAINS IN PLACE, DRAINING XIMENA URINE.
--- NOTE | 2022-08-31 22:24 | NUR ---
pt CONTINUES TO CALL OUT FOR HELP AND REPORTS FEELING LONELY AND WISHES TO SPEAK TO HIS LUIS, BOTH pt AND HX DEMENTIA PER SHIFT REPORT. pt REORIENTED AND REDIRECTED TO TIME/PLACE. PHYSICAL THERAPY COORDINATOR NOW IN ROOM AND STAYING WITH pt.
--- NOTE | 2022-08-31 22:25 | NUR ---
Sat with Pt. Pt talked about favorite TV shows, and spoke sentences that did not make sense. Call light left in reach. No other needs expressed at this time. RN assumed care.
--- NOTE | 2022-08-31 22:30 | NUR ---
IN TO START IV. PT SITTING UP IN BED. ERYN SWARTZ IN VISITING WITH PT. IV STARTED IN LEFT FOREARM. PT TOLERATED WELL. BRISK BLOOD RETURN NOTED AND FLUSHED WNL. SOCK PLACED OVER IV TO PROTEVT SITE. NO OTHER NEEDS FROM THIS RN AT THIS TIME. ERYN SWARTZ STILL IN ROOM WITH PT.
--- NOTE | 2022-08-31 22:50 | NUR ---
20 G SL PLACED IN LEFT FOREARM PER AMY RN, SITE REPORTED COVERED FOR EXTRA PROTECTION PER AMY RN.
--- NOTE | 2022-08-31 23:15 | NUR ---
PT RESTING IN BED, OCCASIONALLY WITH MOIST COUGH, BED ALARM ON, SIDE RAILS UP X 3.
--- NOTE | 2022-08-31 23:50 | NUR ---
PT CONTINUES TO CALL OUT, REPOSITIONED UP IN BED, BP RECHECKED AND ANOW 107/60, SATS 95%, CONTINUES WITH MOIST COUGH, PRODUCTIVE OF CLEAR SPUTUM. BED ALARMS ON.
--- NOTE | 2022-09-01 00:35 | NUR ---
PT REMAINS RESTLESS, CALLING OUT, RN TO BEDSIDE, OFFERED MEDICATION TO HELP REST, PT AGREES, PT MEDICATED WITH 0.5MG ATIVAN IV PER ORDER. SIDE RAILS UP X 4.
--- NOTE | 2022-09-01 01:08 | NUR ---
DR KENYON AT RN STATION. CLARIFIED ORDERS FOR CPOX AND TELE, VERBAL READ BACK OKAY TO DC TELE AND CPOX. OKAY TO SPOT CHECK SPO2 WITH VSS AND PRN. PRIMARY RN AWARE.
--- NOTE | 2022-09-01 01:15 | NUR ---
PT RESTLESS, CALLING OUT FOR , SOB NOTED AT TIMES, MOIST COUGH, COARSE BS THROUGHOUT ANTERIORLY, SPOT CHECK OXYGEN SAT 94%, RESP RATE 20, SOCK OVER IV SITE REPLACED, OSMAN REMAINS IN PLACE AND DRAINING YELLOW URINE.
--- NOTE | 2022-09-01 02:47 | NUR ---
pt HEARD CALLING OUT FOR HELP. pt HEARD CALLING OUT, "HAPPY BIRTHDAY SOMEBODY, COME ON IN HERE AND GET A BIRTHDAY KISS. OH LUIS, COME HELP ME MY SWEETHAERT". pt REORIENTED TO PLACE/TIME, pt INSTRUCTED HE IS IN THE HOSPITAL AND CANNOT BE YELLING OUT pts ARE TRYING TO SLEEP. pt VERBALIZES "OKAY", NO NEEDS OR CONCERNS VERBALIZED WHEN ASKED. BED ALARM REMAINS ON AND CALL LIGHT IN REACH.
--- NOTE | 2022-09-01 03:45 | NUR ---
Patient was anxious and yelled out help. I went in to check on him and sat with him for a little while. Put the T.V. on the music channel for him and he seemed to enjoy that. He started to relax as he talked about playing music. I sat and talked with him until he relaxed a bit. Make sure oxygen was in place and call light within reach.
--- NOTE | 2022-09-01 05:00 | NUR ---
PT APPEARS TO SLEEP, RESP EVEN AND REG
[2022-09-01 06:50] VITALS: BP 112/56
--- NOTE | 2022-09-01 06:50 | NUR ---
PT APPEARS TO SLEEP, VS, I/O AND ASSESSMENT DONE, HOB ELEVATED SLIGHTLY FOR BRIEF COUGHING EPISODE, OSMAN EMPTIED FOR 1050 ML YELLOW URINE, PT BACK TO SLEEP WHEN LEFT UNDISTURBED.
[2022-09-01 10:33] VITALS: BP 111/80
--- NOTE | 2022-09-01 11:09 | NUR ---
Removed thakur catheter at this time. 10ml sterile saline removed from cath balloon. Catheter tip intact. Patient tolerated well. Patient now due to void.
--- NOTE | 2022-09-01 12:50 | NUR ---
Patient resting in bed, no notable distress. Patient remains on 2L oxygen per nc, respirations are non labored. No current needs. Call light within reach.
[2022-09-01 14:41] VITALS: BP 110/70
--- NOTE | 2022-09-01 15:07 | NUR ---
Admin 0.5mg Ativan IV for anxiety.
--- NOTE | 2022-09-01 17:57 | NUR ---
Patient having difficulty urinating, notable urinary retention. Bladder scan done at this time 490ml. TORB from Dr. Dunaway to place thakur catheter.
[2022-09-01 18:06] VITALS: BP 97/58
--- NOTE | 2022-09-01 18:25 | NUR ---
16fr OSMAN CATHTER INSERTED USING STERILE TECHNIQUE. UROJET USED FOR COMFORT PRIOR TO INSERTION. IMMEDIATE RETURN OF 600ML CLEAR YELLOW URINE POST OSMAN INSERTION. PATIENT TOLERATED WELL.
--- NOTE | 2022-09-01 19:10 | NUR ---
BEDSIDE REPORT RECEIVED PER ALFREDO RN, PT IN BED WITH BED ALARM ON, PT WANTING TO GO HOME, ATTEMPTS MADE TO REORIENT TO TIME AND PLACE UNSUCESSFUL, SIDE RAILS UP X 4, SUPPORT GIVEN.
[2022-09-01 20:09] VITALS: BP 110/71
--- NOTE | 2022-09-01 20:20 | NUR ---
Refilled Pt's water with fresh ice and closed blinds in room. Call light left in reach. No other needs expressed by Pt.
--- NOTE | 2022-09-01 21:30 | NUR ---
RN TO BEDSIDE, PT AWAKE, REMAINS DISORIENTED TO PLACE AND TIME, ATTEMPTS MADE TO REORIENT, ROUNTINE SEROQUEL GIVEN PER ORDER, VS REVIEWED, ASSESSMENT COMPLETED, CATH CARE DONE, OSMAN DRAINING YELLOW URINE, SIDE RAILS UP X 4, BED ALARM ON, FRESH WATER GIVEN.
--- NOTE | 2022-09-01 22:00 | NUR ---
PT REMAINS AWAKES, CALLING OUT PERIODICALLY, ATTEMPTS TO REORIENT UNSUCESSFUL BUT PT SEEMS CALM, ENCOURAGED PT TO ATTEMPT TO REST.
--- NOTE | 2022-09-02 00:45 | NUR ---
PT APPEARS TO SLEEP, RESP EVEN AND REG.
--- NOTE | 2022-09-02 01:50 | NUR ---
PT APPEARS TO SLEEP, RESP EVEN AND REG AT 28/MIN, OXYGEN REMAINS IN PLACE AND CONTINUES AT 2L/NC.
--- NOTE | 2022-09-02 03:15 | NUR ---
PT APPEARS TO SLEEP, OXYGEN IN PLACE, OCCASIONAL MOIST COUGH.
--- NOTE | 2022-09-02 04:15 | NUR ---
PT CONTINUES TO SLEEP, RESP EVEN AND REG.
--- NOTE | 2022-09-02 05:00 | NUR ---
PT CONTINUES TO SLEEP, RESP EVEN AND REG
[2022-09-02 06:50] VITALS: BP 98/65
--- NOTE | 2022-09-02 06:50 | NUR ---
PT AWAKEN, VS AND I/O DONE, BREATH SOUNDS CONTINUE COARSE THROUGHOUT, MOIST COUGH, OXYGEN CONTS AT 2L/NC, OSMAN PATENT, LINEN CHANGED, PT COOPERATIVE AND PLEASANT, SL INTACT, FRESH WATER GIVEN.
--- NOTE | 2022-09-02 07:20 | NUR ---
RECEIVED REPORT FROM NOC NURSE. PT IS ALERT, RESPIRATIONS ELEVATED AT BASELINE. OSMAN CATHETER INTACT. CALL LIGHT WITHIN REACH.
--- NOTE | 2022-09-02 08:30 | NUR ---
PT ASSESSMENT AND MEDICATION ADMINISTRATION COMPLETED. PT LUNGS COARSE THROUGHOUT. RT CALLED FOR NEB TREATMENT. CALL LIGHT WITHIN REACH.
[2022-09-02 08:37] VITALS: BP 114/65
--- NOTE | 2022-09-02 09:36 | NUR ---
PT FINISHED WORKING WITH PHYSICAL THERAPY. ASSISTED PT WITH TELEVISION AND REMOVED BREAKFAST TRAY. I/O'S COMPLETED. ENCOURAGED AND ASSISTED WITH WATER INTAKE. CALL LIGHT WITHIN REACH.
--- NOTE | 2022-09-02 12:42 | NUR ---
PT READJUSTED IN BED. PT IS ALERT BUT CONFUSED. CALL LIGHT WITHIN REACH.
[2022-09-02 14:07] VITALS: BP 91/58
--- NOTE | 2022-09-02 15:20 | NUR ---
REPOSITIONED PT IN BED. IV FLUID BOLUS RUNNING. CALL LIGHT WITHIN REACH.
--- NOTE | 2022-09-02 15:20 | NUR ---
LEFT FOREARM IV INFILTRATED WITH LR FLUIDS. IV STOPPED AND ARM ELEVATED. PT DENIES PAIN TO AREA. INNER FOREARM EDEMATOUS.
[2022-09-02 18:04] VITALS: BP 99/70
--- NOTE | 2022-09-02 19:12 | NUR ---
BEDSIDE REPORT RECEIVED PER AKIL PT ALERT, PLEASANT, RESTING IN BED, RESP RED, SIDE RAILS UP X 4, BED ALARM ON
--- NOTE | 2022-09-02 19:51 | NUR ---
PT GRANDSON HERE VISITING. BROUGHT FOOD, PLACED IN FRIDGE IN CUP, GRANDSON HAS BOWL TO TAKE HOME. PT ASKING FOR WHEELCHAIR TO OUTSIDE AND GO WITH GRANDSON. ORIENTATED PT, ASKED WHERE HE IS, HE SAID HE WAS IN [place]. ASK WHY, HE LAUGHED SAID HE GOT .
[2022-09-02 20:17] VITALS: BP 106/54
--- NOTE | 2022-09-02 20:17 | NUR ---
VS DONE PER FRONT END DEVELOPER JAVASCRIPT HTML CSS, PT RESTING.
--- NOTE | 2022-09-02 21:40 | NUR ---
PT ALERT,PLEASANT, DISORIENTED TO PLACE, ATTEMPTS TO REORIENT, ASSESSMENT COMPLETED, IV PATENT RIGHT HAND, COVERED WITH COBAN, RT SEROQUEL GIVEN PER ORDER, I/O DONE, OSMAN CARE GIVEN, DRAINING YELLOW URINE.
--- NOTE | 2022-09-02 22:34 | NUR ---
PT STATES HE IS HAVING A HARD TIME FALLING ASLEEP, OFFERED MELATONIN AND PT AGREES, PT MEDICATED PER ORDER WITH 3MG
--- NOTE | 2022-09-03 00:12 | NUR ---
PT APPEARS TO SLEEP, RESP EVEN AND REG, WITHOUT DISTRESS.
--- NOTE | 2022-09-03 01:30 | NUR ---
PT CONTINUES TO SLEEP, RESP EVEN AND REG.
--- NOTE | 2022-09-03 03:30 | NUR ---
HEARD PT COUGHING, CONGESTED, CHECKED, O2 UP ON HIS FOREHEAD, SATS 84 RA, NOTICED SPIT ON HIS GUO. O2 REPLACED, SATS IMPROVED TO 93%, PATHOLOGY SPECIALIST AND THIS TROUSSEAU CONSULTANT REPOSITIONED PT. OSMAN EMPTIED. PT WASHED FACE, CALL LIGHT WITHIN REACH, ENCOURAGED PT TO USE CALL LIGHT FOR HELP. BED ALARM IN PLACE.
--- NOTE | 2022-09-03 04:02 | NUR ---
PT CONTINUES TO SLEEP, RESP EVEN AND REG, OXYGEN IN PLACE AT 3L/NC
--- NOTE | 2022-09-03 05:24 | NUR ---
PT CONTS TO SLEEP, RESP EVEN AND REG.
[2022-09-03 06:20] VITALS: BP 100/57
--- NOTE | 2022-09-03 06:20 | NUR ---
PT RESTING IN BED. VITALS AND IS AND OS COMPLETE. OSMAN EMPTIED. NO NEEDS. CALL LIGHT WITHIN REACH
--- NOTE | 2022-09-03 06:30 | NUR ---
PT REMAINS ASLEEP, RESP EVEN AND REG, OXYGEN IN PLACE, FOCUSED ASSESSMENT DONE.
--- NOTE | 2022-09-03 07:15 | NUR ---
RECEIVED REPORT FROM [facility] NURSE. PT APPEARS TO BE SLEEPING COMFORTABLY. RESPIRATIONS EVEN AND REGULAR. OSMAN CATHETER IN PLACE.
--- NOTE | 2022-09-03 08:10 | NUR ---
PT ASSESSMENT AND MEDICATION ADMINISTRATION COMPLETED. PT IS SLEEPY BUT AROUSES EASILY. CATALOG LIBRARIAN AT BEDSIDE TO ASSIST PT TO CHAIR FOR BREAKFAST.
[2022-09-03 08:15] VITALS: BP 103/73
--- NOTE | 2022-09-03 08:16 | NUR ---
Updated notes faxed to [facility]ARR[facility] at [facility].
--- NOTE | 2022-09-03 09:06 | NUR ---
INTO SEE PATIENT, UP IN CHAIR. PATIENT ALERT AND STATES HE IS STILL AGREEABLE TO DISCHARGE TO [facility]. UPDATED THAT CASE MANAGEMENT WILL UPDATE HIM AND HIS FAMILY WHEN ACCEPTED TO PLACEMENT.
--- NOTE | 2022-09-03 10:59 | NUR ---
GOT PATIENT UP FOR BREAKFAST THIS MORNING. PATIENT SET IN HIS CHAIR.
--- NOTE | 2022-09-03 11:11 | NUR ---
ROUNDED ON PT, ADJUSTED IN BED. PT DOES WELL INDEPENDENTY MOVING IN BED BUT NEEDS REMINIDERS. ENCOURAGED PO FLUID INTAKE. CALL LIGHT WITHIN REACH.
--- NOTE | 2022-09-03 11:47 | NUR ---
PT USED CALL LIGHT APPROPRIATELY REQUESTING TO USE THE BEDSIDE COMMODE. PT HAD MED BM. CONTINUES TO HAVE INCREASED SOB WITH EXERTION. BACK TO BED, RT AT BEDSIDE FOR PT BREATHING TREATMENT. CALL LIGHT WITHIN REACH.
--- NOTE | 2022-09-03 13:11 | NUR ---
PATIENT UP FROM CHAIR, AMBULATED TO BED. BED ALARM IS ON.
[2022-09-03 13:21] VITALS: BP 93/53
--- NOTE | 2022-09-03 14:17 | NUR ---
PT APPEARS TO BE SLEEPING COMFORTABLY. RESPIRATIONS EVEN AND REGULAR. CALL LIGHT WITHIN REACH.
--- NOTE | 2022-09-03 14:25 | NUR ---
NOTIFIED OF PT BP OF /. TO ORDER FLUIDS.
--- NOTE | 2022-09-03 16:05 | NUR ---
ASSISTED PT TO BEDSIDE COMMODE. PT IS INTERMITTENTLY CONFUSED. IV FLUID BOLUS RUNNING. CALL LIGHT WITHIN REACH.
--- NOTE | 2022-09-03 16:24 | NUR ---
MEDICATION ADMINISTRATION COMPLETED. IV FLUIDS RUNNING. FAMILY AT BEDSIDE. CALL LIGHT WITHIN REACH.
--- NOTE | 2022-09-03 16:46 | NUR ---
Call from [facility], they are reviewing chart. Request labs and Emar x 3 days. Faxed all to .
[2022-09-03 17:39] VITALS: BP 119/68
--- NOTE | 2022-09-03 19:00 | NUR ---
BEDSIDE REPORT GIVEN PER AKIL RN, PT AWAKE, PLEASANT, WITHOUT REQUESTS AT THIS TIME.
--- NOTE | 2022-09-03 20:18 | NUR ---
PT AWAKE AND ALERT, STATES SHE IS FEELING BETTER SINCE RIGHT LEG HAD BEEN REPOSITIONED, VS AND ASSESSMENT DONE, LOW UO, ATTEMPTED TO READJUST OSMAN TUBING,PLAN TO RECHECK IN APPROX 1 HOUR TO DETERMINE U/O, PT WATCHING TV, IV PATENT, LR CONTINUES AT 75ML/HR, SITE INTACT.
[2022-09-03 20:37] VITALS: BP 110/61
--- NOTE | 2022-09-03 22:28 | NUR ---
PT CALLING OUT, RN TO ROOM, PT PLEASANT, STATES HE NEEDS HELP TO "PEE", DISCUSSED HE HAS JACQUI, RN CHECK TO SEE IF DRAINING WELL, YELLOW URINE NOTED IN TUBING, PT TILTED TOWARD RIGHT SIDE, PT MEDICATED WITH MELATONIN 3MG PER ORDER, PT RESING.
--- NOTE | 2022-09-03 23:16 | NUR ---
PT REMAINS AWAKE, RESTING WITHOUT COMPLAINTS AT THIS TIME.
--- NOTE | 2022-09-04 00:20 | NUR ---
PT ASLEEP, RESP EVEN AND REG.
--- NOTE | 2022-09-04 01:00 | NUR ---
PT TALKING OUT, PT STATES HE NEEDS TO "PEE", DISCUSSED HAVING OSMAN AND PT STATES "OH I FORGOT" PT PLEASANT, OSMAN DRAINING YELLOW URINE.
--- NOTE | 2022-09-04 02:15 | NUR ---
PT RESTING LAYING ON LEFT SIDE, OCCASIONLY CALLS OUT FOR "LUIS", PT WITH EYES CLOSED, RESP REG.
--- NOTE | 2022-09-04 02:47 | NUR ---
IV LR COMPLETE, IVF STOPPED PER ORDER, SL FLUSHES WELL, SITE INTACT.
--- NOTE | 2022-09-04 04:08 | NUR ---
PT LAYING ON LEFT SIDE, RESP EVEN, REGULAR AND DEEP, OXYGEN IN PLACE, SL INTACT AND OSMAN DRAINING YELLOW URINE.
[2022-09-04 05:57] VITALS: BP 106/70
--- NOTE | 2022-09-04 06:51 | NUR ---
PT CONTINUES TO SLEEP IN CHAIR WITH LEGS ELEVATED, DISCUSSED WITH LITHOGRAPH OPERATOR AND MEDICAL OFFICE SUPERVISOR COMING ON DUTY AND PLAN TO LET PT SLEEP UNTIL BEFORE BREAKFAST. VS DEFERRED AT THIS TIME.
--- NOTE | 2022-09-04 07:12 | NUR ---
PT REFUSED TO GET UP TO CHAIR AT THIS MOMENT. NO NEEDS. CALL LIGHT WITHIN REACH
--- NOTE | 2022-09-04 07:25 | NUR ---
RECEIVED REPORT FROM [facility] NURSE. PT APPEARS TO BE SLEEPING COMFORTABLY. RESPIRATIONS EVEN AND REGULAR. U/O IMPROVED OVERNIGHT.
[2022-09-04 08:04] VITALS: BP 115/69
--- NOTE | 2022-09-04 08:13 | NUR ---
PT IS UP IN CHAIR STATES HE ISN'T FEELING GOOD THIS A.M. BUT HE STATES " I CANT QUITE PUT MY FINGER ON WHAT IS WRONG." PT DENIES PAIN. WOB IS INCREASED. UPPER LOBES COARSE WITH EXPIRATORY WHEEZES, LOWER LOBES COARSE. VS WNL. RT AT BEDSIDE TO GIVE NEB TREATMENT. WILL CONTINUE TO MONITOR.
--- NOTE | 2022-09-04 08:39 | NUR ---
LARRY FROM [facility] CALLED AND WILL TAKE PATIENT TODAY AT 2:15 VIA WHEEL CHAIR VAN. MESSAGE LEFT ON DAUGHTER'S PHONE ABOUT DC TO [facility] TODAY.
--- NOTE | 2022-09-04 10:35 | NUR ---
ASSISTED PT TO BEDSIDE COMMODE. CALL LIGHT WITHIN REACH.
[2022-09-04 13:24] VITALS: BP 102/53
--- NOTE | 2022-09-04 14:33 | NUR ---
report called to luz
== END 2022-09-04 14:16 | disposition home or self-care (01) | DRG 689 ==
LOC: ED 16:58 → CCU 16:59 → MS 08-31 13:03
PROVIDERS: ADMIT Family Medicine; ATTEND Family Medicine
PROC: 5A09357 Assistance with Respiratory Ventilation, Less than 24 Consecutive Hours, Continuous Positive Airway Pressure (ICD-10-PCS; 2022-08-29)
PROC: HZ2ZZZZ Detoxification Services for Substance Abuse Treatment (ICD-10-PCS; principal; 2022-09-04)
PROC: 0T9B70Z Drainage of Bladder with Drainage Device, Via Natural or Artificial Opening (ICD-10-PCS; 2022-09-04)
DX: N39.0 Urinary tract infection, site not specified (principal); G93.41 Metabolic encephalopathy; F10.139 Alcohol abuse with withdrawal, unspecified; E87.1 Hypo-osmolality and hyponatremia; B96.1 Klebsiella pneumoniae [K. pneumoniae] as the cause of diseases classified elsewhere; E83.42 Hypomagnesemia; E87.6 Hypokalemia; N40.1 Benign prostatic hyperplasia with lower urinary tract symptoms; R33.8 Other retention of urine; J44.9 Chronic obstructive pulmonary disease, unspecified; Z20.822 Contact with and (suspected) exposure to COVID-19; I48.91 Unspecified atrial fibrillation; E78.5 Hyperlipidemia, unspecified; F39 Unspecified mood [affective] disorder; I25.2 Old myocardial infarction; Z88.0 Allergy status to penicillin; Z79.899 Other long term (current) drug therapy; Z87.891 Personal history of nicotine dependence
CPT/HCPCS: 36415; 71045; 72131; 74177; 80048; 80053; 81001; 82140; 82803; 83735; 83880; 85025; 85610; 87077; 87088; 87186; 87502; 93005; 93010; 94640; 94660; 94668; 94760; 97110; 97163; 97167; 97530; 97535; A9270; A9270-GY; C9803; J0696; J1650; J2060; J2270; J3411; J3475; J3480; J7030; J7121; Q0177; Q9967; U0003

== ENCOUNTER 2023-04-21 20:34 | Emergency (ER) | payer MEDICARE ==
[~2023-04-21] VITALS: Ht 175.3 cm; Wt 84.1 kg
[~2023-04-21 20:34] MED LIST changes: +ANTI-ITCH28 G1 TOP; +BUSPIRONE HCL10 MG PO; +CEFDINIR300 MG PO; +CITALOPRAM HBR40 MG PO; +FLOMAX0.4 MG PO; +INCRUSE ELLI62.5 MCG INH; +MAGNESIUM OXID250 MG PO; +MELATONIN5 M2 PO; +MIRALAX119 GM PO; +PEPTO-BISM262 MG/15 PO; +POTASSIUM20 MEQ/15 PO; +PREDNISONE10 MG PO; +SENNA8.6 MG PO; +TYLENOL EXTRA500 MG PO; +ZITHROMAX250 MG PO
[2023-04-21 21:08] LABS: BASOPHILS 0.5 % (0-2); EOSINOPHILS 3.4 % (0-6); HEMATOCRIT 38.8 % (35.0-50.0); HEMOGLOBIN 12.5 g/dL (12.0-18.0); LYMPHOCYTES 18.7 % (24-44); MCH 30.8 (27-36); MCHC 32.3 g/dl (30-36); MCV 95.4 fl (81-99); MONOCYTES 10.7 % (0-12); NEUTROPHILS 66.7 % (39-80); PLATELET COUNT 187 K/uL (140-440); RBC 4.06 M/ul (4.3-5.7)
[2023-04-21 21:32] LABS: ALBUMIN 3.3 g/dL (3.4-5.0); ALBUMIN/GLOBULIN RATIO 0.92 (1.1-2.4); ALCOHOL, MEDICAL <3 ng/dL (<3); ALKALINE PHOSPHATASE 59 U/L (46-116); ALT (SGPT) 13 U/L (14-59); ANION GAP 7.4 (7-21); AST (SGOT) 16 U/L (15-37); BILIRUBIN, TOTAL 0.5 ng/dL (0.2-1.0); BUN/CREATININE RATIO 8.04 (6.0-28.6); CALCIUM 8.7 mg/dL (8.5-10.1); CARBON DIOXIDE 35 mmol/L (21-32); CHLORIDE 102 mmol/L (98-107); CREATININE, SERUM 0.87 mg/dL (0.70-1.30); GLOMERULAR FILTRATION RATE,EST 90 mL/min (>60); POTASSIUM 3.4 mmol/L (3.5-5.1); PROTEIN, TOTAL 6.9 g/dL (6.4-8.2); UREA NITROGEN 7 mg/dL (7-18)
[2023-04-21 21:45] LABS: BILIRUBIN, URINE POSITIVE (negative); BLOOD/HGB, URINE LARGE (Negative); KETONE, URINE TRACE (Negative); LEUK ESTERASE, URINE TRACE (negative); NITRITE, URINE POSITIVE (negative); PH, URINE 5.5 (5-7)
[2023-04-21 21:49] LABS: EPITHELIAL CELLS, URINE 0 /lpf (0-1+)
[2023-04-21 21:50] LABS: RED BLOOD CELLS, URINE 21-40 /hpf (0-5); REFLEX CULTURE, URINE Yes (No)
[2023-04-21] MEDS ORDERED: BACTRIM DS TAB1 EACH PO (22:02)
--- NOTE | 2023-04-21 22:17 | EKG ---
[facility] [address] [facility] [place] [address] Signed Atrial fibrillation Low voltage QRS Abnormal ECG When compared with ECG of 20-DEC-2022 05:44, No significant change was found Confirmed by Kayli Eiwng MD () on 04/21/2023 10:17:31 PM Electronically Signed By: KAYLI EWING MD 04/21/23 2217 PATIENT NAME: PARKER ELLIS Electrocardiogram DATE OF : 46 PHYSICIAN: KAYLI EWING MD REPORT #: [id number] REPORT IS CONFIDENTIAL AND NOT TO BE RELEASED WITHOUT AUTHORIZATION
[2023-04-21 22:41] LABS: AMPHETAMINES, URINE NEGATIVE (NEGATIVE); BARBITURATES, URINE NEGATIVE (NEGATIVE); BENZODIAZEPINE, URINE NEGATIVE (NEGATIVE); BUPRENORPHINE, URINE NEGATIVE (NEGATIVE); CANNABINOID, URINE POSITIVE (NEGATIVE); COCAINE, URINE NEGATIVE (NEGATIVE); ECSTASY, URINE NEGATIVE (NEGATIVE); FENTANYL, URINE NEGATIVE (NEGATIVE); METHADONE, URINE NEGATIVE (NEGATIVE); OPIATES, URINE NEGATIVE (NEGATIVE); OXYCODONE, URINE NEGATIVE (NEGATIVE); PHENCYCLIDINE, URINE NEGATIVE (NEGATIVE)
[2023-04-21 23:33] VITALS: BP 123/81
== END 2023-04-21 23:33 | disposition home or self-care (01) ==
LOC: ED 20:34
PROVIDERS: Internal Medicine
DX: N39.0 Urinary tract infection, site not specified (principal); J43.9 Emphysema, unspecified; E78.5 Hyperlipidemia, unspecified; I25.2 Old myocardial infarction; I48.91 Unspecified atrial fibrillation; Z99.81 Dependence on supplemental oxygen; Z87.891 Personal history of nicotine dependence; Z88.0 Allergy status to penicillin; Z88.8 Allergy status to other drugs, medicaments and biological substances; Z79.899 Other long term (current) drug therapy
CPT/HCPCS: 36415; 71045; 80053; 80307; 81001; 84484; 85025; 87088; 96374; 99285-25; A9270; G0480; J0696

== ENCOUNTER 2023-12-30 17:17 | Emergency (ER) | payer MEDICARE ==
[~2023-12-30] VITALS: Ht 175.3 cm; Wt 82.0 kg
[~2023-12-30 17:17] MED LIST changes: +BACTRIM DS TAB1 EACH PO; +NEURONTIN300 MG PO; +PHOSPHA 250 NE250 MG PO
[2023-12-30 18:23] LABS: BASOPHILS 0.6 % (0-2); EOSINOPHILS 3.7 % (0-6); HEMATOCRIT 40.7 % (35.0-50.0); HEMOGLOBIN 13.4 g/dL (12.0-18.0); LYMPHOCYTES 26.3 % (24-44); MCH 32.4 (27-36); MCHC 32.9 g/dl (30-36); MCV 98.4 fl (81-99); MONOCYTES 9.7 % (0-12); NEUTROPHILS 59.7 % (39-80); PLATELET COUNT 232 K/uL (140-440); RBC 4.13 M/ul (4.3-5.7); RDW 14.8 (10.5-15.0)
[2023-12-30] MEDS ORDERED: ALBUTEROL/IPRATROPIUM 3 ML NEB INH ONE (18:30)
[2023-12-30 18:46] LABS: ALBUMIN 3.5 g/dL (3.4-5.0); ALBUMIN/GLOBULIN RATIO 0.9 (1.1-2.4); ANION GAP 11.4 (7-21); BILIRUBIN, TOTAL 0.4 ng/dL (0.2-1.0); BUN/CREATININE RATIO 17.72 (6.0-28.6); CALCIUM 9.2 mg/dL (8.5-10.1); CREATININE, SERUM 0.79 mg/dL (0.70-1.30); POTASSIUM 3.4 mmol/L (3.5-5.1); PROTEIN, TOTAL 7.4 g/dL (6.4-8.2)
[2023-12-30 18:48] LABS: MAGNESIUM 1.6 mg/dL (1.8-2.4)
[2023-12-30] MEDS ORDERED: LIDOCAINE 2% VISCOUS 6 ML SYR TOP ONE (19:00)
[2023-12-30 20:09] VITALS: BP 121/75
--- NOTE | 2023-12-30 22:39 | EKG ---
[facility] [address] [facility] [place] [address] Signed Sinus rhythm with 1st degree AV block Otherwise normal ECG When compared with ECG of 16-JUL-2023 17:50, Sinus rhythm has replaced Atrial fibrillation Confirmed by Kayli Ewing MD () on 12/30/2023 10:38:49 PM Electronically Signed By: KAYLI EWING MD 12/30/23 2239 PATIENT NAME: PARKER ELLIS Electrocardiogram DATE OF : 46 PHYSICIAN: KAYLI EWING MD REPORT #: [id number] REPORT IS CONFIDENTIAL AND NOT TO BE RELEASED WITHOUT AUTHORIZATION
== END 2023-12-30 20:10 | disposition home or self-care (01) ==
LOC: ED 17:17
PROVIDERS: Emergency Medicine
DX: F10.929 Alcohol use, unspecified with intoxication, unspecified (principal); J43.9 Emphysema, unspecified; E11.621 Type 2 diabetes mellitus with foot ulcer; L97.429 Non-pressure chronic ulcer of left heel and midfoot with unspecified severity; I48.91 Unspecified atrial fibrillation; I25.2 Old myocardial infarction; E78.5 Hyperlipidemia, unspecified; J96.11 Chronic respiratory failure with hypoxia; Z99.81 Dependence on supplemental oxygen; N40.0 Benign prostatic hyperplasia without lower urinary tract symptoms; F17.210 Nicotine dependence, cigarettes, uncomplicated; Z88.0 Allergy status to penicillin; Z88.8 Allergy status to other drugs, medicaments and biological substances; Z79.899 Other long term (current) drug therapy
CPT/HCPCS: 36415; 51702; 51798; 71045; 80053; 83735; 84484; 85025; 93005; 93010; 94640; 99285-25

== ENCOUNTER 2024-06-06 23:16 | Emergency (ER) | payer MEDICARE ==
[~2024-06-06] VITALS: Ht 175.3 cm; Wt 83.0 kg
[2024-06-06] MEDS ORDERED: SODIUM CHLORIDE 0.9% 500 ML IV PRN (23:30)
[2024-06-06] MEDS ORDERED: LIDOCAINE 2% VISCOUS 6 ML SYR TOP ONE (23:30)
[2024-06-06] MEDS ORDERED: BUDESONIDE 0.5 MG/2 ML VIAL INH ONE (23:30)
[2024-06-06] MEDS ORDERED: ondansetron HCL 4 MG/2 ML VIAL IV ONE (23:30)
[2024-06-06] MEDS ORDERED: MORPHINE SULFATE 4 MG/ML VIAL IV ONE (23:30)
[2024-06-06] MEDS ORDERED: ALBUTEROL/IPRATROPIUM 3 ML NEB INH ONE (23:30)
[2024-06-06 23:36] LABS: HEMOGLOBIN 12.6 g/dL (12.0-18.0); PLATELET COUNT 204 K/uL (140-440)
[2024-06-06 23:44] LABS: BASOPHILS 0.2 % (0-2); EOSINOPHILS 2.7 % (0-6); HEMATOCRIT 38.8 % (35.0-50.0); LYMPHOCYTES 9.2 % (24-44); MCH 30.8 (27-36); MCHC 32.5 g/dl (30-36); MCV 94.6 fl (81-99); MONOCYTES 8.7 % (0-12); NEUTROPHILS 79.2 % (39-80)
[2024-06-06] MEDS ORDERED: FUROSEMIDE 20 MG/2 ML VIAL IV ONE (23:45)
[2024-06-06] MEDS ORDERED: PROCHLORPERAZINE EDISYLATE 10 MG/2 ML VIAL IV ONE (23:45)
[2024-06-06 23:54] LABS: ALBUMIN/GLOBULIN RATIO 0.7 (1.1-2.4); ANION GAP 9.1 (7-21); BILIRUBIN, TOTAL 0.5 mg/dL (0.2-1.0); BUN/CREATININE RATIO 8.75 (6.0-28.6); CALCIUM 9.3 mg/dL (8.5-10.1); CREATININE, SERUM 0.8 mg/dL (0.70-1.30); POTASSIUM 4.1 mmol/L (3.5-5.1); PROTEIN, TOTAL 7.3 g/dL (6.4-8.2)
[2024-06-07 00:25] LABS: INFLUENZA B NAA NEGATIVE (NEGATIVE); RESPIRATORY SYNCYTIAL VIR NAA NEGATIVE (NEGATIVE)
[2024-06-07 00:28] LABS: PH, VENOUS 7.347 (7.31-7.41)
[2024-06-07 01:33] LABS: BILIRUBIN, URINE NEGATIVE (negative); BLOOD/HGB, URINE MODERATE (Negative); KETONE, URINE NEGATIVE (Negative); LEUK ESTERASE, URINE SMALL (negative); NITRITE, URINE NEGATIVE (negative)
[2024-06-07 01:42] LABS: BACTERIA, URINE 2+ /hpf (negative); CASTS, URINE NONE SEEN \\lpf; COLLECTION TYPE, URINE CLEAN CATCH; CRYSTALS, URINE AMORPHOUS PHOSPH 1+ (0-1+); EPITHELIAL CELLS, URINE SQUAMOUS 1+ /lpf (0-1+); REFLEX CULTURE, URINE Yes (No); WHITE BLOOD CELLS, URINE 21-40 /HPF (0-5)
[2024-06-07] MEDS ORDERED: ondansetron HCL 4 MG/2 ML VIAL IV ONE (01:45)
[2024-06-07] MEDS ORDERED: fentaNYL citrate 100 MCG/2 ML VIAL IV ONE ×2 (01:45→03:00)
[2024-06-07] MEDS ORDERED: CEFTRIAXONE/SODIUM CHLORIDE 2 GM/100 ML PIGGYBACK IV ONE (02:15)
[2024-06-07] MEDS ORDERED: SODIUM CHLORIDE 0.9% 1,000 ML IV SCH (03:00)
[2024-06-07] MEDS ORDERED: droPERidol 5 MG/2 ML VIAL IV PRN (03:00)
[2024-06-07] MEDS ORDERED: KETOROLAC TROMETHAMINE 30 MG/ML VIAL IV ONE (03:00)
[2024-06-07 04:47] VITALS: BP 113/61
== END 2024-06-07 04:47 | disposition short-term general hospital (02) ==
LOC: ED 23:16
PROVIDERS: Family Medicine
DX: N40.0 Benign prostatic hyperplasia without lower urinary tract symptoms (principal); J98.11 Atelectasis; J43.9 Emphysema, unspecified; N13.9 Obstructive and reflux uropathy, unspecified; I71.9 Aortic aneurysm of unspecified site, without rupture; N20.1 Calculus of ureter; N39.0 Urinary tract infection, site not specified; Z99.81 Dependence on supplemental oxygen; Z87.891 Personal history of nicotine dependence; Z88.0 Allergy status to penicillin; Z88.8 Allergy status to other drugs, medicaments and biological substances; Z79.899 Other long term (current) drug therapy
CPT/HCPCS: 36415; 51702; 71250; 74177; 80053; 81001; 82803; 83690; 83880; 85025; 87502; 94640; 99284-25; J0696; J0780; J1885; J2270; J2405; J3010; J7030; J7040; Q9967; U0002

== ENCOUNTER 2024-07-31 14:56 | Inpatient (IN) | payer MEDICARE ==
[~2024-07-31] VITALS: Ht 175.3 cm; Wt 71.5 kg
[2024-07-31] MEDS ORDERED: ALBUTEROL/IPRATROPIUM 3 ML NEB INH PRN (15:15)
[2024-07-31 15:20] LABS: BASOPHILS 0.4 % (0-2); EOSINOPHILS 8.2 % (0-6); HEMATOCRIT 35.4 % (35.0-50.0); HEMOGLOBIN 11.8 g/dL (12.0-18.0); MCH 30.6 (27-36); MCHC 33.5 g/dl (30-36); MCV 91.4 fl (81-99); MONOCYTES 12.5 % (0-12); NEUTROPHILS 58.9 % (39-80); PLATELET COUNT 227 K/uL (140-440); RBC 3.87 M/ul (4.3-5.7); RDW 15.3 (10.5-15.0)
[2024-07-31 15:43] LABS: ALBUMIN 2.7 g/dL (3.4-5.0); ALBUMIN/GLOBULIN RATIO 0.69 (1.1-2.4); ANION GAP 4.2 (7-21); BILIRUBIN, TOTAL 0.5 mg/dL (0.2-1.0); BUN/CREATININE RATIO 18.18 (6.0-28.6); CALCIUM 8.7 mg/dL (8.5-10.1); CREATININE, SERUM 1.1 mg/dL (0.70-1.30); MAGNESIUM 1.7 mg/dL (1.8-2.4); POTASSIUM 3.2 mmol/L (3.5-5.1); PROTEIN, TOTAL 6.6 g/dL (6.4-8.2)
[2024-07-31 15:53] LABS: BILIRUBIN, URINE POSITIVE (negative); BLOOD/HGB, URINE LARGE (Negative); KETONE, URINE TRACE (Negative); LEUK ESTERASE, URINE LARGE (negative); NITRITE, URINE NEGATIVE (negative)
[2024-07-31 16:00] LABS: BACTERIA, URINE 2+ /hpf (negative); CASTS, URINE NONE SEEN \\lpf; COLLECTION TYPE, URINE CLEAN CATCH; CRYSTALS, URINE NONE SEEN (0-1+); EPITHELIAL CELLS, URINE 0 /lpf (0-1+); REFLEX CULTURE, URINE Yes (No); WHITE BLOOD CELLS, URINE >50 /HPF (0-5)
[2024-07-31] MEDS ORDERED: SODIUM CHLORIDE 0.9% 500 ML IV PRN (16:00)
[2024-07-31] MEDS ORDERED: CEFTRIAXONE SODIUM 2 GM in SODIUM CHLORIDE 0.9% 100 ML IV ONE (18:00)
[2024-07-31] MEDS ORDERED: ondansetron HCL 4 MG/2 ML VIAL IV PRN (21:00)
[2024-07-31] MEDS ORDERED: ACETAMINOPHEN 325 MG TAB PO PRN (21:00)
[2024-07-31] MEDS ORDERED: POTASSIUM CHLORIDE 10 MEQ TABCR PO ONE ×2 (21:00→23:30)
[2024-07-31] MEDS ORDERED: SODIUM CHLORIDE 0.9% 1,000 ML IV SCH (21:00)
[2024-07-31] MEDS ORDERED: ALBUTEROL SULFATE 0.083% 3 ML VIAL INH PRN (21:15)
--- NOTE | 2024-07-31 22:34 | EKG ---
[facility] [address] [facility] [place] [address] Signed Sinus rhythm with 1st degree AV block Prolonged QT Abnormal ECG When compared with ECG of 30-DEC-2023 18:28, QT has lengthened Confirmed by Kayli Ewing MD () on 07/31/2024 10:33:46 PM Electronically Signed By: KAYLI EWING MD 07/31/24 2234 PATIENT NAME: PARKER ELLIS Electrocardiogram DATE OF : 46 PHYSICIAN: KAYLI EWING MD REPORT #: [id number] REPORT IS CONFIDENTIAL AND NOT TO BE RELEASED WITHOUT AUTHORIZATION
[2024-08-01] VITALS (12 sets, daily range): BP systolic 102–126; BP diastolic 55–74
--- NOTE | 2024-08-01 01:53 | NUR ---
PATIENT RESTING IN BED ON HIS LEFT SIDE. PATIENT DENIES ANY NEEDS AT THIS TIME. CALL LIGHT AND PERSONAL BELONGINGS ARE WITHIN REACH. BED ALARM ACTIVATED. CPOX AT BEDSIDE.
--- NOTE | 2024-08-01 03:09 | NUR ---
THIS RN IN PATIENT ROOM DUE TO CPOX ALARMING. PATIENT SITTING UP IN BED WITH OXYGEN TUBING ON FORHEAD. OXYGEN SATS DOWN TO 80% AT THIS TIME. THIS RN PLACED NASAL CANULA BACK IN PATIENT NARES, OXYGEN SATS BACK UP TO 94% ON 3L. PATIENT WITH ODD BEHAVIORS AT THIS TIME, BUT DENIES ANY NEEDS. BED ALARM ACTIVATED. CALL LIGHT AND PERSONAL BELONGINGS ARE WITHIN REACH. LUNG SOUNDS ARE WITH WHEEZES THROUGHOUT. IV INFUSING NS CONTINUOUS AT 125ML/HR.
--- NOTE | 2024-08-01 04:00 | NUR ---
PATIENT HAD A LARGE BM AT THIS TIME. THIS RN AND ERYN DEJESUS IN ROOM TO CHANGE PATIENT. PATIENT CLEANED WITH PURPLE SKIN PROTECT WIPES. PATIENT TOLERATED OKAY, BUT DID REPORT TENDERNESS TO SKIN. PATIENT CLEANED UP THOROUGHLY AND FRESH BRIEF PLACED. PATIENT WITHOUT FURTHER NEEDS AT THIS TIME. CALL LIGHT AND PERSONAL BELONGINGS ARE WITHIN REACH.
[2024-08-01 05:29] LABS: BASOPHILS 0.2 % (0-2); EOSINOPHILS 6.6 % (0-6); HEMATOCRIT 33.9 % (35.0-50.0); HEMOGLOBIN 11.1 g/dL (12.0-18.0); LYMPHOCYTES 13.4 % (24-44); MCHC 32.6 g/dl (30-36); MONOCYTES 12.1 % (0-12); NEUTROPHILS 67.7 % (39-80); PLATELET COUNT 233 K/uL (140-440); RBC 3.69 M/ul (4.3-5.7); RDW 16.1 (10.5-15.0)
[2024-08-01 05:48] LABS: ALBUMIN 2.6 g/dL (3.4-5.0); ALBUMIN/GLOBULIN RATIO 0.67 (1.1-2.4); BILIRUBIN, TOTAL 0.3 mg/dL (0.2-1.0); BUN/CREATININE RATIO 13.58 (6.0-28.6); CALCIUM 8.6 mg/dL (8.5-10.1); CREATININE, SERUM 0.81 mg/dL (0.70-1.30); MAGNESIUM 1.6 mg/dL (1.8-2.4); PHOSPHORUS, INORGANIC 3.1 mg/dL (2.5-4.9); PROTEIN, TOTAL 6.5 g/dL (6.4-8.2)
--- NOTE | 2024-08-01 06:15 | NUR ---
PATIENT RESTING IN BED ON HIS LEFT SIDE. VITALS TAKEN AND ARE STABLE. IV PUMP CLEARED. PATIENT WITHOUT FURTHER NEEDS AT THIS TIME. CALL LIGHT AND PERSONAL BELONGINGS ARE WITHIN REACH. CPOX AT BEDSIDE. BED ALARM ACTIVATED.
--- NOTE | 2024-08-01 07:32 | NUR ---
RECEIVED REPORT FROM NIGHT RN. PT RESTING AT THIS TIME, DID NOT WAKE UP THIS MORNING WHEN ENTERED ROOM. IV FLUIDS INFUSING. CPOX IN PLACE, SATING CURRENTLY 91% ON 3L PER NASAL CANNULA. BLANKETS ADJUSTED TO COVER UP PATIENT. NO OTHER NEEDS AT THIS TIME, CALL LIGHT IS WITHIN REACH. IV FLUIDS INFUSING ORDERED. BED ALARM IN PLACE. WILL CONITNUE TO MONITOR.
[2024-08-01] MEDS ORDERED: ALBUTEROL/IPRATROPIUM 3 ML NEB INH SCH (08:00)
[2024-08-01] MEDS ORDERED: BUDESONIDE 0.5 MG/2 ML VIAL INH SCH (08:00)
--- NOTE | 2024-08-01 08:02 | NUR ---
PATIENT IN BED AT THIS TIME. THIS COUNTER SUPERVISOR DID HOURLY ROUNDS ON PATIENT. CALL LIGHT WITHIN REACH, NO FURTHER NEEDS AT THIS TIME.
[2024-08-01] MEDS ORDERED: MAGNESIUM SULFATE 2 GM/50 ML BAG IV ONE (08:15)
[2024-08-01] MEDS ORDERED: ENOXAPARIN SODIUM 40 MG/0.4 ML SYR SUB-Q SCH (09:00)
--- NOTE | 2024-08-01 09:24 | NUR ---
JANETH IN BED AT THIS TIME. THIS CHEMIST INSTRUMENTATION CHARTED VITALS AND I&O'S. CHEMIST INSTRUMENTATION ALSO PROVIDED PATIENT WITHI CATHETER CARE. CALL LIGHT WITHIN REACH, NO FURTHER NEEDS AT THIS TIME.
--- NOTE | 2024-08-01 10:02 | NUR ---
PT RESTING IN BED, IV MAG STARTED, MORNING MEDS GIVEN ORDERED - SEE MAR. PT STATES NOT IN PAIN AT THIS TIME. HE HAS BEEN LIMITED ON WHAT HE CAN PROVIDE, BUT COULD RECALL WHAT SIZE CATHETER THEY USE FOR HIS SUPRAPUBIC CATH, PT INFORMED WE WILL BE CHANGING THAT THIS MORNING, HE COULD NOT RECALL THE LAST TIME IT WAS CHANGED, UNSURE OF THE EVENTS THAT LED HIM TO COMING INTO THE HOSPITAL THIS TIME. IV FLUIDS INFUSING ORDERED. HE DOES HAVE A SMALL AREA OF OPENNESS FROM THE SCRATCHING ON HIS (L) HIP, WILL PROVIDE PATIENT A SPONGE BATH AND HE AGREES WITH THAT. PT REPORTS HE IS NOT IN ANY PAIN AT THIS TIME. PT USING O2 AT 3L AT THIS TIME WITH CPOX IN PLACE, HE IS WHEEZY BUT DENIES BEING SHORT OF BREATH AND IS ABLE TO HOLD A CONVERSATION WITH THIS RN AT BEDSIDE. DENIES ANY OTHER NEEDS AT THIS TIME, CALL LIGHT WITHIN REACH. ALL PT CARE NEEDS MET.
--- NOTE | 2024-08-01 10:27 | NUR ---
PT SUPRAPUBIC CATHETER WAS 18FR THAT WAS IN PLACE. CHANGED OUT WITH ANOTHER 18FR OSMAN CATHETER, UPON REMOVAL PT STATES IT WAS VERY PAINFUL, PT STATES IT IS ALWAYS PAINFUL WITH SENIOR SOFTWARE QA ANALYST. ON INSERTION THERE WAS A SLIGHT AMOUNT OF INSERTION AND IT WAS PAINFUL, URINE DID HAVE BLOOD TINGE WITH URINE AFTER INSERTION, WILL CONTINUE TO MONITOR. PT STATES IT ALWAYS HURTS WITH CATHETER SENIOR SOFTWARE QA ANALYST. HE DOES HAVE SOME SUPRAPUBIC TENDERNESS ON PALPATION. THERE WAS SOME YELLOW TINGE DRAINAGE AT INSERTION SITE, CLEANSED WITH BETADINE UPON INSERTION. PT TOLERATED FAIRLY, WILL CONTINUE TO MONITOR URINE OUTPUT. DRAWING HAND WAS INFORMED BY THIS RN ABOUT THE BLOODY URINE, WILL MONITOR FOR IMPROVEMENT.
[2024-08-01] MEDS ORDERED: TAMSULOSIN HCL0.4 MG PO (10:38)
[2024-08-01] MEDS ORDERED: NAC600 MG PO (10:39)
[2024-08-01] MEDS ORDERED: BUSPIRONE HCL15 MG PO (10:41)
[2024-08-01] MEDS ORDERED: HYDROXYZINE PAM25 MG PO (10:43)
[2024-08-01] MEDS ORDERED: LIDOCAINE HCL5 ML MM (10:50)
[2024-08-01] MEDS ORDERED: PANTOPRAZOLE SO40 MG PO (10:50)
[2024-08-01] MEDS ORDERED: OXYBUTYNIN CHLOR5 M1 PO (10:53)
[2024-08-01] MEDS ORDERED: IPRAT-ALBUT 0.5-3 ML INH (10:55)
[2024-08-01] MEDS ORDERED: VENTOLIN HFA18 GM (10:56)
[2024-08-01] MEDS ORDERED: GABAPENTIN300 MG PO (10:57)
[2024-08-01] MEDS ORDERED: dilTIAZem HCL 120 MG CAPCR PO SCH (11:56)
[2024-08-01] MEDS ORDERED: CITALOPRAM HYDROBROMIDE 20 MG TAB PO SCH (11:56)
[2024-08-01] MEDS ORDERED: oxyBUTYnin chloride 5 MG TAB PO SCH (11:57)
[2024-08-01] MEDS ORDERED: TAMSULOSIN HCL 0.4 MG CAP PO SCH (11:57)
[2024-08-01] MEDS ORDERED: PHARMACY RENAL DOSE ADJUSTMENT 1 DOSE MISC PO SCH (12:00)
[2024-08-01] MEDS ORDERED: busPIRone HCL 15 MG TAB PO PRN (12:00)
--- NOTE | 2024-08-01 12:45 | NUR ---
PT LUNCH COMPLETED, SALINE LOCKED IN PRESENCE OF CT COMING TO GET PATIENT. PT CATHETER IS YELLOW, NO LONGER ANY BLOOD PRESENT. THERE IS SEDIMENT IN THE CATHETER TUBING. PT DENIES ANY PAIN WHILE AT REST BUT STILL HAS DISCOMFORT WITH PALPATION. FRESH ICE WATER PROVIDED, DENIES ANY FURTHER NEEDS AT THIS TIME.
--- NOTE | 2024-08-01 14:25 | NUR ---
PATIENT RESTING IN BED, CT ARRIVED TO GET PATIENT, ASSISTED DOWN IN CT PATIENT WENT BY BED. DURING CT SCAN, PT WAS HESITANT TO GET SCAN, CONVINCED TO PROCEED. ABLE TO GET IT SCAN DONE SUCCESSFULLY. PT BACK IN ROOM AT THIS TIME, THIS RN AND MOP HANDLE ASSEMBLER ASSISTED IN LIFTING PATIENT UP IN BED, NEW ATTENDS APPLIED. PATIENT BUTTOCK IS HEALING EXCORIATED AREA, CRITIC AID PLACED TO BACK SIDE, OTHER OLIVEIRA RASH PRESENT BUT NO OPEN AREAS/NO DRAINAGE. WARM BLANKETS PROVIDED BY MOP HANDLE ASSEMBLER. PT SITTING IN BED, WATCHING TV AT THIS TIME. IV FLUIDS RESTARTED ORDERED. NO OTHER NEEDS AT THIS TIME, CALL LIGHT WITHIN REACH. WILL CONTINUE TO MONITOR.
--- NOTE | 2024-08-01 15:09 | NUR ---
PT IS MORE CONFUSED, STATES HE WANTS TO GO BACK TO HIS ROOM. HE IS DISORIENTED AND BELIEVES THAT THIS RN HAS MOVED HIM ROOMS AFTER HIS CT SCAN, REQUESTING TO GO BACK TO THE ROOM HE WAS PREVIOUSLY IN, INFORMED AND REORIENTED BUT PATIENT IS HITTING BED, STATING DONT MESS WITH ME, BE STRAIGHT WITH ME. I AGAIN REORIENTED TO THE SITUATION AND EVENTS THAT OCCURED TODAY AND HE STILL REMAINS CONFUSED. THIS RN INFORMED PT WE COULD MOVE HIM TO A ROOM THAT IS CLOSER TO NURSES STATION, WHICH THIS RN FEELS WOULD BE BETTER FOR THE PATIENT SAFETY. FLAME BRAZING MACHINE OPERATOR NOTIFIED AND AGREES WITH POC. ALL PT CARE NEEDS MET, STILL CONFUSED BUT CLOSER TO NURSES STATION, BED ALARM IN PLACE. ASSET PROTECTION MANAGER ASSISTED WITH MOVING PATIENT ROOMS. PATIENT BELONGINGS MOVED WITH PATIENT INTO NEW ROOM. DAUGHTER CINTHIA NOTIFIED THAT WE MOVED PATIENT ROOMS WELL.
--- NOTE | 2024-08-01 16:46 | NUR ---
PATIENT CONTINUES TO CALL OUT AND BE CONFUSED BUT IS PLEASANT UPON ENTRY. THEIR CATHETER CORD BECAME WRAPPED AROUND THEIR LEG, IT WAS UNWRAPPED AND PATIENT FEELS MORE COMFORTABLE.
--- NOTE | 2024-08-01 16:47 | NUR ---
ROUNDED ON PATIENT AND HE COMPLAINED OF ABDOMINAL PAIN. RN AWARE. I GAVE HIM A WARM COMPRESS. WILL REASSESS IN 20 MINUTES. CALL LIGHT IN REACH, BED ALARM SET.
--- NOTE | 2024-08-01 16:54 | NUR ---
REPORT REC'D FROM JULIUS BROOKE. PT PLEASANTLY CONFUSED TO TIME AND LOCATION. ASSESSMENT COMPLETED. PT ALERT, DISORIENTED AND CONFUSED. O2 IN PLACE VIA NC AT 3LNC, BASELINE. PT WITH WET COUGH, RALES, RHONCHI AND EXPIRATORY WHEEZES NOTED. HRR, ABD TENDER WITH PALPATION, SUPRAPUBIC CATHETER CHANGED THIS AM, DRAINING CLEAR YELLOW URINE. CT REPORT WITH R HYDRONEPHROSIS AND RENAL CALCULI, PT TO BE NPO AFTER MN FOR RENAL STENT PLACEMENT. MULTIPLE SCATTERED BRUISES, SCABS AND SCRATCHES TO BODY. L AC IV INFUSING NS @ 125CC/HR. CALL GABRIEL IN REACH, BED IN LOW POSITION AND LOCKED, SIDERAILS UP X3, BED ALARM IN USE. PT IN DIRECT SITE OF NURSING STATION.
[2024-08-01] MEDS ORDERED: CEFTRIAXONE SODIUM 2 GM in SODIUM CHLORIDE 0.9% 100 ML IV SCH (18:00)
--- NOTE | 2024-08-01 18:51 | NUR ---
PT CARED FOR T/O SHIFT WITHOUT C/O. PT HAS BEEN CONFUSED AND FIGIDITY. SPO2 DROPS TO MID 80'S ON 2LNC. INCREASED TO BASELINE OF 3LNC AND SATS 88-91%. CPT HAS BEEN ORDERED FOR PULMONARY TOILETING. PT TO BE NPO AFTER MN FOR STENT PLACEMENT IN AM WITH DR. VELA.
--- NOTE | 2024-08-01 19:21 | NUR ---
ROUNDED ON PATIENT FIXED PULSE OX.
--- NOTE | 2024-08-01 19:29 | NUR ---
CALL PLACED TO PATIENT DAUGHTER, CINTHIA, TO INFORM PATIENT WILL BE HAVING STENTS PLACED IN AM BY DR. VELA.
--- NOTE | 2024-08-01 20:08 | NUR ---
RECEIVED REPORT. RESPONDED TO BEEPING CPOX MACHINE, PT SELF-REMOVED SENSOR FROM FINGER. MOVED SENSOR TO TOE, PT SPO2 95%. PERFORMED ASSESSMENT. BED ALARM ACTIVE, CALL LIGHT IN REACH
--- NOTE | 2024-08-01 20:26 | NUR ---
PARKER IS AWAKE ON A 3L NC LAYING IN BED WATCHING [employer] ON TV. HOB IS AT 28 DEGREES.
--- NOTE | 2024-08-01 20:45 | NUR ---
ASSESSMENT, EVENING MEDS. GIVEN PO TYLENOL FOR TENDERNESS SURROUNDING CATHETER. PT DAUGHTER CALLED, REQUESTED TO SAY ENRIQUE TO PT. FACILITATED PHONE CALL BETWEEN PT AND FAMILY. NO OTHER NEEDS PRESENTLY, CALL LIGHT N REACH AND BED ALARM ACTIVE
--- NOTE | 2024-08-01 21:53 | NUR ---
DID FULL BED CHANGE FROM SPILT WATER, PATIENT HAD NO NEEDS AT THIS TIME. CALL LIGHT IN REACH, BED ALARM SET.
--- NOTE | 2024-08-01 22:26 | NUR ---
RESPONDED TO ALARMING CPOX SHOWING SPO2 OF LOW 80S. PT NASAL CANNULA MIGRATED FROM NOSE, REPLACED AND SECURED WITH SMALL AMOUNT OF TAPE TO TEMPLES. SPO2 INCREASED TO 95%. NO OTHER NEEDS, BED ALARM ACTIVE
--- NOTE | 2024-08-01 23:46 | NUR ---
PT LOUDLY COUGHIN, UNABLE TO CLEAR SECRETIONS. SUCTIONED WITH YANKUER. OBSERVED TACHYPNEA AND SUBCOSTAL RETRACTIONS WITH ACCESSORY MUSCLE USE. SPO2 REMAINS 93% ON ROOM AIR. PT DROWSY BUT ROUSABLE. PLAN TO CONSULT WITH RT
[2024-08-02] VITALS (11 sets, daily range): BP systolic 105–127; BP diastolic 49–85
--- NOTE | 2024-08-02 01:24 | NUR ---
PT WITH INCREASED RESPIRATORY EFFORT AND CONFUSION. SUBCOSTAL RETRACTIONS AND ACCESSORY MUSCLE USE, RESPIRATIONS 20-26. PT ALSO WITH INCREASED CONFUSION, NOT RESPONDING TO QUESTIONS AND ASKED "HELP ME". ALSO NOTED INSTANCES OF GIBBERISH WORDS AND MUSCLE TWITCH. VITALS ARE STABLE INCLUDING SPO2 OF 90-94% ON 3L. RT ADMINISTERED NEBULIZER TREATMENT TO GOOD EFFECT, PT ABLE TO ANSWER QUESTIONS APPROPRIATELY AFTER THOUGH STILL WITH INCREASED CONFUSION. MD NOTIFIED, STAT CXR ORDERED. CALL LIGHT IN REACH, BED ALARM ACTIVE
--- NOTE | 2024-08-02 03:17 | NUR ---
PT RESTING WITH EYES CLOSED, SP02 95%. BREATHING STILL LABORED, THOUGH IMPROVED FROM EARLIER. CALL LIGHT IN REACH, BED ALARM ACTICE
--- NOTE | 2024-08-02 04:31 | NUR ---
RN AND HAZMAT CDL A DRIVER ADJUSTED PT IN BED. PT CONFUSED, BREATHING STILL LABORED THOUGH IMPROVED. PT RESPONDING TO QUESTIONS, INTERMITTENTLY SPEAKING GIBBERISH WORDS TO SELF. BED ALARM ACTIVE
--- NOTE | 2024-08-02 04:54 | NUR ---
PT RESTLESS, CRYING OUT "OH PLEASE HELP ME". GIVEN PRN TYLENOL FOR POSSIBLE DISCOMFORT, AND READJUSTED IN BED. VITALS. BED ALARM ACTIVE
[2024-08-02 05:13] LABS: BASOPHILS 0.2 % (0-2); EOSINOPHILS 7.5 % (0-6); HEMOGLOBIN 9.9 g/dL (12.0-18.0); LYMPHOCYTES 20.5 % (24-44); MCH 30.4 (27-36); MCHC 32.9 g/dl (30-36); MCV 92.2 fl (81-99); MONOCYTES 12.5 % (0-12); NEUTROPHILS 59.3 % (39-80); PLATELET COUNT 220 K/uL (140-440); RBC 3.25 M/ul (4.3-5.7); RDW 16.2 (10.5-15.0)
[2024-08-02 05:33] LABS: ALBUMIN 2.3 g/dL (3.4-5.0); ALBUMIN/GLOBULIN RATIO 0.62 (1.1-2.4); ANION GAP 2.7 (7-21); BILIRUBIN, TOTAL 0.3 mg/dL (0.2-1.0); BUN/CREATININE RATIO 9.52 (6.0-28.6); CREATININE, SERUM 0.63 mg/dL (0.70-1.30); POTASSIUM 3.7 mmol/L (3.5-5.1)
--- NOTE | 2024-08-02 06:18 | NUR ---
PT WITH EPISODE OF INCREASED RESP DISTRESS AND CONFUSION, TALKING GIBBERISH AND NOT RESPONDING APPROPRIATELY TO QUESTIONS. MD NOTIFIED AND REPEAT CXR PERFORMED. RT GIVEN BREATHING TREATMENT TO GOOD EFFECT. PT RESPIRATORY STATUS AND CONFUSION IMPROVED TO WHERE IT WAS AT BEGINNING OF SHIFT. ORIENTED TO SELF LUNG SOUNDS COARSE, WHEEZY THROUGHOUGH WITH RALES AND RHONCI. OCCASIONALLY OBSERVED SUBCOSTAL RETRACTIONS AND ACCESSORY MUSCLE USE. TACHYPNEA TO 20-26. NPO SINCE MIDNIGHT FOR PROCEDURE TODAY. BT ACTIVE. SUPRAPUBIC CATH IN PLACE WITH ADEQUATE UOP. PLAN FOR URETER STENT PLACEMENT TODAY.
--- NOTE | 2024-08-02 07:40 | NUR ---
RECIEVED SHIFT REPORT FROM JULIUS GREEN. PT IS ASLEEP IN BED, EYES CLOSED, BREATHING EVEN, AUDIBLE WHEEZE HEARD. CALL LIGHT IN REACH. BED ALARM ON FOR PT SAFETY.
--- NOTE | 2024-08-02 07:44 | NUR ---
PATIENT IN BED RESTING WITH EYES CLOSED. WHITE BOARD UPDATED. CALL LIGHT IN REACH.
--- NOTE | 2024-08-02 09:49 | NUR ---
IN TO DO PRESURGICAL WIPE DOWN. WIPE DOWN DONE. LINENS CHANGED. VITALS AND I&O'S DONE. CALL LIGHT IN REACH. NO FURTHER NEEDS AT THIS TIME. GOWN CHANGED.
[2024-08-02 10:01] LABS: INFLUENZA B NAA NEGATIVE (NEGATIVE); RESPIRATORY SYNCYTIAL VIR NAA NEGATIVE (NEGATIVE)
[2024-08-02] MEDS ORDERED: iopamidoL 30 ML VIAL ONE ×3 (10:09→11:50)
--- NOTE | 2024-08-02 10:10 | NUR ---
MORNING ASSESSMENT COMPLETE. PT AWAKE IN BED, DISCOMFORT NOTED NEAR SUPRAPUBIC OSMAN CATHETER INSERTION SITE. SITE SHOWS NO SIGNS OF INFECTION, CATHETER DRAINING CLEAR YELLOW URINE. AUDIBLE WHEEZE HEARD, LUNG SOUNDS BILAT UPPER WHEEZE, BILAT LOWER DIM. RECEIVING NEB TX PER XIMENA, INTERIOR DESIGN INSTRUCTOR REQUEST PRIOR TO SURGERY AT THIS TIME. MORNING MEDICATIONS HELD FOR SURGERY, OKAY'D BY DR. MATTA. CPOX IN PLACE SPO2 95% ON 3L NC. CALL LIGHT IN REACH.
[2024-08-02] MEDS ORDERED: BUPIVACAINE 0.75% IN DEXTROSE 2 ML AMP ONE (10:11)
--- NOTE | 2024-08-02 10:18 | NUR ---
REPORT GIVEN TO JULIUS GERBER FOR SURGERY. ALL QUESTIONS ANSWERED. PT OFF FLOOR AT THIS TIME.
[2024-08-02] MEDS ORDERED: SODIUM CHLORIDE 0.9% 20 ML IV ONE (10:56)
[2024-08-02] MEDS ORDERED: CEFAZOLIN SOD 1,000 MG/10 ML VIAL ONE (10:56)
[2024-08-02] MEDS ORDERED: fentaNYL citrate 100 MCG/2 ML VIAL ONE (11:11)
[2024-08-02] MEDS ORDERED: ePHEDrine sulfate 50 MG/ML AMP ONE (11:15)
[2024-08-02] MEDS ORDERED: TRANEXAMIC ACID 1,000 MG/10 ML AMP ONE (12:15)
[2024-08-02] MEDS ORDERED: propofoL 200 MG/20 ML VIAL ONE ×2 (12:16)
[2024-08-02] MEDS ORDERED: LIDOCAINE HCL 2% 5 ML SDV ONE (12:16)
--- NOTE | 2024-08-02 13:07 | NUR ---
08/02/24 1307 JOANN MCCOLLUM 1251 PT ARRIVED TO PACU VIA STREACHER. PT AWAKE, PT HAS NATURAL AIRWAY IN PLACE. PT HAS 3L OF OXYGEN VIA NASAL CANULLA. PT REPORTING PAIN, PAIN MEDICATION GIVEN BY CORPORATE INVESTIGATOR, SEE ANESTHESIA BLUE SHEET. LR RUNNING CONTINUOUSLY IN IV IN RIGHT AC. 1255 PT PLACED ON 6L OF OXYGEN VIA FACE MASK DUE TO OXYGEN SATURATION BELOW 90%. PT SAT UP MORE TO ASSIST WITH BREATHING, DUE TO PT BREATHING LABORED. 1305 PT RESING NOW WITH EYES CLOSED. PT OXYGEN SATURATION AT 100% ON 6 L.
[2024-08-02] MEDS ORDERED: MIDAZOLAM HCL 2 MG/2 ML VIAL ONE (13:24)
[2024-08-02] MEDS ORDERED: MIDAZOLAM HCL 2 MG/2 ML VIAL IV ONE (13:30)
--- NOTE | 2024-08-02 14:14 | NUR ---
PT ARRIVED TO [place] FROM PACU. PT ALERT, REQUESTING WATER. PRODUCT TEST SPECIALIST STATED PT WAS DRINKING WATER IN PACU AND TOLERATED WELL. AFTER PT DRANK WATER, PT BEGAN VOMITING, 100ML. ZOFRAN GIVEN IV (PER EMAR). OSMAN CATHETER DRAINING LIGHT PIN URINE. IVF INFUSING. CALL LIGHT IN REACH.
--- NOTE | 2024-08-02 15:07 | NUR ---
PT RESTING IN BED, AWAKE. DENIES DISCOMFORT. CALL LIGHT IN REACH, BED ALARM ON FOR PT SAFETY. NO NEW CHANGES ON CATHETER DRAINAGE COLOR
--- NOTE | 2024-08-02 15:41 | NUR ---
CALLED DAUGHTER TO GIVE AND UPDATE ON PT SURGERY, ALL QUESTIONS ANSWERED.
--- NOTE | 2024-08-02 16:52 | NUR ---
PT USES CALL LIGHT, REPORTS, "SOMETHING'S NOT RIGHT." PT DENIES CHEST PAIN, SOB NOTED. SPO2 90% ON 3 LPM, O2 INCREASED TO 4 LPM, SPO2 INCREASES TO 94%. LUNG SOUNDS ARE COARSE THROUGHOUT WITH OCCASIONAL WHEEZE. PT REPOSITIONED FOR COMFROT. SOB IMPROVES. PT ENCOURAGED TO USE FLUTTER VALVE, PT RETURN DEMONSTRATES THIS COUGHS. CALL LIGHT IN REACH. LACI, RN PRIMARY NURSE NOTIFIED.
--- NOTE | 2024-08-02 17:36 | NUR ---
PATIENT REFUSED DINNER BUT IS DRINKING AN ENSURE RN AWARE. CALL LIGHT IN REACH. DENIES NEEDS.
--- NOTE | 2024-08-02 17:46 | NUR ---
PT YELLING OUT "HELLO" THIS RN AND YANICK WRIGHT IN ROOM. PT STATES HE WANTS TO GO HOME. REASSURED PT HE WILL BE STAYING ANOTHER NIGHT. PT REFUSING TO EAT DINNER. CALL LIGHT IN REACH, ENCOURAGED TO USE IT WHEN NEEDING ANYTHING. BED ALARM ON FOR SAFETY.
--- NOTE | 2024-08-02 18:08 | NUR ---
PATIENT IN BED AT THIS TIME. I&O'S DONE AND CHARTED. BED ALARM ON. CALL LIGHT IN REACH. NO FURTHER NEEDS AT THIS TIME.
--- NOTE | 2024-08-02 18:29 | NUR ---
PT YELLING OUT "I WANT TO GO HOME". PT GIVEN ANTIANXIETY MEDICATION TO HELP EASE PATIENT. PT EDUCATED ON MEDICATION. CALL LIGHT IN REACH. PT REPOSITIONED.
--- NOTE | 2024-08-02 19:35 | NUR ---
RECEIVED REPORT. PT RESTLESS, ASKING TO GO HOME. WHEN ASKS, STATES HE IS NOT IN PAIN BUT HE "CAN'T STAND THIS ANYMORE" AND HAS FACIAL GRIMACE AND GUARDING. BED ALARM ACTIVE
[2024-08-02] MEDS ORDERED: MELATONIN 3 MG TAB PO PRN (19:45)
[2024-08-02] MEDS ORDERED: NYSTATIN OINTMENT 15GM TUBE TOP SCH (19:50)
[2024-08-02] MEDS ORDERED: HYDROCORTISONE 1% 30 GM TUBE TOP PRN (20:00)
--- NOTE | 2024-08-02 20:10 | NUR ---
PT RESTLESS AND GUARDING ABDOMEN/GROIN. ASKED IF HE WOULD LIKE TYLENOL AND RESPONDS "ABSOLUTELY." GIVEN PRN TYLENOL AND ICE PACK. TAKEN VITALS L ARM SWELLING. L IV WITH GOOD BLOOD RETURN, NO EVIDENCE OF INFILTRATION. 2+ RADIAL PULSE. STOPPED IV AND ELEVATED ARM FOR NOW. CALL LIGHT IN REACH, BED ALARM ACTIVE
--- NOTE | 2024-08-02 22:10 | NUR ---
PLACED NEW PIV ON R FOREARM. MISSED FIRST ATTEMPT D/T PT MOVEMENT. PT REPORTS HIS ABDOMEN PAIN IS GREATLY IMPROVED. NO LONGER GUARDING OR GRIMACING. BED ALARM ACTIVE, CALL LIGHT IN REACH
--- NOTE | 2024-08-03 00:07 | NUR ---
PT ALERT IN BED, WAVES I LOOK IN THE ROOM. DENIES NEEDS FOR NOW. CALL LIGHT IN REACH, BED ALARM ACTIVE
[2024-08-03 01:29] VITALS: BP 100/48
--- NOTE | 2024-08-03 01:31 | NUR ---
VITALS, I&OS. PT ALERT, LISTENING TO MUSIC. NO NEEDS PRESENTLY, CALL LIGHT IN REACH
--- NOTE | 2024-08-03 02:10 | NUR ---
PT REQUESTS NEBULIZER TREATMENT, NOTIFIED RT.
--- NOTE | 2024-08-03 03:44 | NUR ---
PT RESTING IN BED WITH EYES CLOSED, SP02 IN 90S. CALL LIGHT IN REACH, BED ALARM ACTIVE.
[2024-08-03 05:22] VITALS: BP 110/52
[2024-08-03 05:27] VITALS: BP 110/52
[2024-08-03 05:29] LABS: BASOPHILS 0.1 % (0-2); EOSINOPHILS 3.2 % (0-6); HEMATOCRIT 28.9 % (35.0-50.0); HEMOGLOBIN 9.6 g/dL (12.0-18.0); LYMPHOCYTES 10.8 % (24-44); MCH 30.6 (27-36); MCHC 33.3 g/dl (30-36); MCV 91.9 fl (81-99); MONOCYTES 11.7 % (0-12); NEUTROPHILS 74.2 % (39-80); PLATELET COUNT 189 K/uL (140-440); RBC 3.15 M/ul (4.3-5.7); RDW 15.5 (10.5-15.0)
[2024-08-03 05:44] LABS: ALBUMIN 2.2 g/dL (3.4-5.0); ALBUMIN/GLOBULIN RATIO 0.59 (1.1-2.4); ANION GAP 6.7 (7-21); BILIRUBIN, TOTAL 0.3 mg/dL (0.2-1.0); BUN/CREATININE RATIO 6.45 (6.0-28.6); CREATININE, SERUM 0.62 mg/dL (0.70-1.30); POTASSIUM 3.7 mmol/L (3.5-5.1); PROTEIN, TOTAL 5.9 g/dL (6.4-8.2)
--- NOTE | 2024-08-03 05:50 | NUR ---
PT ALERT, LISTENING OT MUSIC. GIVEN PRN TYLENOL AND ICE PACK FOR ABOMINAL PAIN. PT ASKS WHETHER HE IS GOING HOME TODAY. INFORMED THAT MDS WILL DISCUSS PLAN IN AM.
--- NOTE | 2024-08-03 07:20 | NUR ---
REPORT FROM JAMES RNMARY.
[2024-08-03 07:35] VITALS: BP 110/52
--- NOTE | 2024-08-03 07:36 | NUR ---
MORNING ASSESSMENT IS COMPLETE. PATIENT DENIES PAIN OR NAUSEA. PATIENT REFUSED TO GET UP TO CHAIR FOR BREAKFAST, REFUSED A SHOWER BUT WOULD LIKE A BED BATH LATER. SUPRAPUBIC CATHETER INTACT AND DRAINING YELLOW URINE WITH THE SLIGHTEST BLOOD TINGE. LEFT ARM HAS MILD EDEMA RELATED TO IV INFILTRATION AND IS ELEVATED ON A PILLOW. PATIENT IS ON HIS BASELINE 3L OF O2, PRODUCTIVE SOUNDING COUGH. LUNGS ARE COARSE AND WHEEZY THROUGHOUT. NO OTHER NEEDS AT THIS TIME.
--- NOTE | 2024-08-03 09:06 | NUR ---
MORNING MEDICATIONS GIVEN.
--- NOTE | 2024-08-03 09:30 | NUR ---
INTO SEE PATIENT. PERSONAL HEALTH INFORMATION REVIEWED. PATIENT LIVES IN A HOUSE WITH DAUGHTER AND . PATIENT HAS NO STAIRS DENIES DIFFCULTY GETTING INTO HOUSE. PATIENT USES A WHEELCHAIR OR WALKER. ALSO HAS HOME OXYGEN THROUGH [facility]. PATIENT DOES NOT DRIVE. PATIENT WILL TAKE TAXI HOME AT TIME OF DISCHARGE. DENIES ANY DIFFCULTY PAYING UTILITIES OR OBTAINING FOOD. NO FUTHER CM NEEDS AT THIS TIME. [facility] TICKET GIVEN TO PRIMARY NURSE AND [facility] TANK GIVEN TO PRIMARY NURSE
[2024-08-03 09:35] VITALS: BP 105/51
[2024-08-03] MEDS ORDERED: CIPROFLOXACIN500 MG PO (09:43)
--- NOTE | 2024-08-03 09:43 | NUR ---
PATIENT IS IN BED AT THIS TIME, MANAGER DOCUMENT CONTROL CHARTED VITALS AND I&O'S, GOT THINGS READY FOR A BATH. CALL LIGHT WITHIN REACH AND NOTHING ELSE NEEDED AT THIS TIME.
--- NOTE | 2024-08-03 10:04 | NUR ---
UR CLINICAL REVIEW: 2MN DESTINY, MEETS INPT FOR UTI WITH AMS IV FLUIDS, IV ANTIBIOTICS, SURGICAL INTERVENTION FOR URETERAL STENT PLACEMENT MEDICARE INPT 07/31/2024 @ 2055 ORDER MATCHES REG NO AUTH REQUIRED PER MEDICARE RULES PLAN TO DC TO HOME WHEN MEDICALLY CLEARED.
--- NOTE | 2024-08-03 10:25 | NUR ---
DISCHARGE PAPERS REVIEWED WITH PATIENT. O2 TANK FROM [facility] TO GO WITH PATIENT. RIGHT A/C IV REMOVED WITH CATHETER INTACT.
--- NOTE | 2024-08-03 11:51 | NUR ---
FAXED HOME HEALTH ORDERS.
== END 2024-08-03 11:10 | disposition home health service (06) | DRG 660 ==
LOC: ED 14:56 → MS 20:58
PROVIDERS: Emergency Medicine; Urology; ADMIT Family Medicine; ATTEND Student in an Organized Health Care Education/Training Program
PROC: BT1D1ZZ Fluoroscopy of Right Kidney, Ureter and Bladder using Low Osmolar Contrast (ICD-10-PCS; 2024-08-02)
PROC: 0TC68ZZ Extirpation of Matter from Right Ureter, Via Natural or Artificial Opening Endoscopic (ICD-10-PCS; principal; 2024-08-02 09:58)
PROC: 0T768DZ Dilation of Right Ureter with Intraluminal Device, Via Natural or Artificial Opening Endoscopic (ICD-10-PCS; 2024-08-02 09:58)
DX: N13.6 Pyonephrosis (principal); J96.11 Chronic respiratory failure with hypoxia; N50.89 Other specified disorders of the male genital organs; I10 Essential (primary) hypertension; F41.9 Anxiety disorder, unspecified; I48.91 Unspecified atrial fibrillation; I25.10 Atherosclerotic heart disease of native coronary artery without angina pectoris; E78.5 Hyperlipidemia, unspecified; F32.9 Major depressive disorder, single episode, unspecified; N40.1 Benign prostatic hyperplasia with lower urinary tract symptoms; R33.8 Other retention of urine; G62.1 Alcoholic polyneuropathy; E87.6 Hypokalemia; D64.9 Anemia, unspecified; J43.2 Centrilobular emphysema; E83.42 Hypomagnesemia; Z99.81 Dependence on supplemental oxygen; Z91.81 History of falling; Z93.50 Unspecified cystostomy status; Z87.891 Personal history of nicotine dependence; Z88.0 Allergy status to penicillin; Z88.8 Allergy status to other drugs, medicaments and biological substances; I25.2 Old myocardial infarction; Z87.440 Personal history of urinary (tract) infections
CPT/HCPCS: 00910; 36415; 70450; 71045; 74177; 74450; 76870; 80053; 81001; 82365; 83735; 83880; 84100; 84484; 85025; 87088; 87502; 93005; 93010; 94640; 94667; 94668; 94762; 97162; A9270; C1726; C1769; C2617; J0690; J0696; J1650; J2003; J2250; J2405; J2704; J3010; J3475; J7030; Q9958; Q9967; U0002